=== PATIENT | female | born 1965 | race Caucasian/White ===

== ENCOUNTER 2016-09-25 20:32 | Emergency (ER) | payer OTHER ==
[2016-09-25] MEDS ORDERED: IBUPROFEN 800 MG TAB As Ordered ONE (23:04)
[2016-09-25] MEDS ORDERED: ACETAMINOPHEN 325 MG TAB As Ordered ONE (23:04)
[2016-09-26] MEDS ORDERED: LIDOCAINE 1% MDV 20ML VIAL As Ordered ONE (00:41)
[2016-09-26] MEDS ORDERED: AUGMENTIN 875 MG TAB As Ordered ONE (00:41)
[2016-09-26] MEDS ORDERED: cefTRIAXone SOD 1 GM VIAL (J0696) As Ordered ONE (00:41)
--- NOTE | 2016-09-26 01:15 | EDDOCDS ---
Nurse's Notes [facility] Name: Diana Frank Age: 51 yrs Sex: Female : 1965 Arrival Date: 09/25/2016 Time: 20:32 Bed I6 / 28 Private MD: Scott Wright P. Diagnosis: Acute serous otitis media, bilateral;Urinary tract infection, site not specified Presentation: 09/25 20:36 Presenting complaint: Patient states: Patient reports that she has chills. Patient jmb since 30 minutes ago. Patient reports that her whole body hurts. Patient reports "I have the flu". Symptoms started yesterday at noon. Patient denies call to PCP. Presenting complaint: Patient states: Patient reports taking tylenol and last dose was at 1400 p.m. Reports that she was going to take another dose at 2000 p.m. but she started vomiting. Adult Sepsis Screening: The patient does not have new or worsening altered mentation. Patient's respiratory rate is less than 22. Systolic blood pressure is greater than 100. Patient has a qSOFA score of 0- Negative Sepsis Screen. Suicide/Homicide risk assessment- the patient denies having any suicidal and/or homicidal ideations and does not present with any other emotional, behavioral or mental health complaints. Status: Patient is not a college service officer or dependent. Transition of care: patient was not received from another setting of care. 20:36 Acuity: KASSIE Level 4 [facility] 20:36 Method Of Arrival: Walkin/Carried/Asstd [facility] Triage Assessment: 20:39 General: Appears in no apparent distress. Pain: Location: head, neck, chest, abdomen, jmb pelvis, right arm, left arm, right leg, right foot, left leg, left foot, back of head, back of neck, back of left arm, back of right arm, posterior chest, buttocks, back of left leg, back of right leg, left heel, right heel and back Pain currently is 9 out of 10 on a pain scale. Pt Declines HIV testing. Neurological: Level of Consciousness is awake, alert, obeys commands, Oriented to person, place, time, Speech is normal, Facial symmetry appears normal, Facial symmetry: tongue is midline. Respiratory: Airway is patent Respiratory effort is even, unlabored, Respiratory pattern is regular, symmetrical. Derm: Skin is pink, warm & dry. Musculoskeletal: Range of motion intact in all extremities. 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 Micardis 40 mg Oral tab 1 tab once daily 2. hydrochlorothiazide 25 mg Oral tab 1 tab once daily 3. simvastatin 20 mg Oral tab 1 tab once daily - PMHx: Hypertension; hyperlipidemia; - PSHx: none; - Social history: Smoking status: Patient states was never smoker of tobacco. No barriers to communication noted, The patient speaks fluent Greek, Speaks appropriately for age. - Family history: Not pertinent. - : The pt / caregiver states he / she is not on anticoagulants. Home medication list is obtained from the patient. - Exposure Risk Screening:: None identified. Screenin:20 Screening information is obtained from the patient. Fall risk: No risks identified. slm Assistance ADL's: requires no assistance with activities of daily living. Abuse/DV Screen: The patient / caregiver reports he/she is: not in a situation that causes fear, pain or injury. Nutritional screening: No deficits noted. Advance Directives: Currently, there is no health care proxy. There is no active DNR order. There is no living will. There is no Power of Electrogalvanizing Machine Operator. Advance directive information has not previously been placed in an [facility] medical record. Further advance directive information is declined. home support is adequate. Assessment: 23:20 General: Appears in no apparent distress, comfortable, Behavior is appropriate for age, slm cooperative. General: pt sitting on stretcher sipping water no distress noted . Respiratory: Airway is patent Respiratory effort is even, unlabored, Respiratory pattern is regular. 09/26 01:11 Reassessment: Patient appears in no apparent distress at this time. Patient states slm feeling better. Vital Signs: 09/25 20:34 BP 152 / 86; Pulse 115; Resp 20; Temp 102.3(O); Pulse Ox 96% on R/A; Weight 88.45 kg; dem1 Height 5 ft. 3 in. (160.02 cm); Pain 8/10; 23:55 BP 133 / 70; Pulse 76; Resp 18; Temp 98.9; Pulse Ox 96% on R/A; Pain 4/10; slm 09/26 01:12 BP 121 / 72; Pulse 69; Resp 16; Temp 98.2(O); Pulse Ox 96% on R/A; Pain 2/10; slm 09/25 20:34 Body Mass Index 34.54 (88.45 kg, 160.02 cm) dem1 Vitals: 09/25 20:34 Log In Time: September 25, 2016 at 20:30. dem1 23:19 Strep Screen is obtained and tested: Negative, a GATSNEG culture is ordered in [facility] and sent. ED Course: 20:33 Patient visited by Mel Maravilla. dem1 20:33 Patient moved to Waiting dem1 20:34 Scott Wright is Private Physician. dem1 20:36 Patient moved to Pre RCE dem1 20:38 Triage Initiated jmb 22:47 Lazara Youssef PA-C is PHCP. ef1 22:47 Enrico Brown DO is Attending Physician. ef1 22:49 Patient visited by Lazara Youssef PA-C. ef1 22:49 Patient moved to I ef1 23:16 -Influenza A&B Rapid Antigen - Nose Sent. slm 23:21 Patient visited by Kimmie Cruz LPN. slm 23:51 Patient visited by Lazara Youssef PA-C. ef1 23:55 Kimmie Cruz LPN is Primary Nurse. slm 23:56 Patient visited by Kimmie Cruz LPN. slm 0207 00:17 Patient visited by Lazara Youssef PA-C. ef1 00:33 Urine Culture Sent. slm 00:35 Scott Wright is Referral Physician. ef1 00:35 [facility] Payment Agreement was scanned into [employer] and attached to record. hs2 00:38 Patient name changed from Iris\\S\\H\\S\\Bachmeyer\\S\\ to Iris\\S\\Helma\\S\\Bachmeyer. EDMS 01:13 No IV's were initiated during this patient's visit. No procedures done that require slm assistance. 01:14 The patient / caregiver is instructed regarding the plan of care and ED course. Patient slm has correct armband on for positive identification. Bed in low position. Call light in reach. Side rails up X 1. Administered Medications: 02/06 23:16 Drug: Acetaminophen 975 mg [acetaminophen 325 mg tablet (3 tabs)] Route: PO; [facility] 23:16 Drug: Ibuprofen 800 mg [ibuprofen 800 mg tablet (1 tabs)] Route: PO; [facility] 09/26 01:12 Follow up: Response: Temperature is decreased [facility] 00:49 Drug: cefTRIAXone 1 grams [ceftriaxone 1 gram solution for injection (1 grams)] Route: slm IM; Site: left gluteus; 01:11 Follow up: Response: No Adverse Reaction [facility] 00:49 Drug: Amoxicillin-Clavulanate 1 tabs [amoxicillin 875 mg-potassium clavulanate 125 mg slm tablet (1 tabs)] Route: PO; Point of Care Testing: Urine Dip: 00:34 pH: 5; ; Specific [place]: 1.015; Ketones: Large; Glucose: Negative; Protein: Negative; [facility] Leukocytes: Positive (++); Nitrite: Negative ; Blood: Large (+++); Bilirubin: Negative ; Urobilinogen: Normal Ranges: Order Results: Lab Order: -Influenza A&B Rapid Antigen - Nose; SPEC'M 09/25/16 23:12 Test: INFLUENZA A RAPID SCR by ICA; Value: INFLUENZA A RESULTS NEGATIVE; Status: F Test: INFLUENZA A RAPID SCR by ICA; Value: Comments:; Status: F Test: INFLUENZA B RAPID SCR by ICA; Value: INFLUENZA B RESULTS NEGATIVE; Status: F Test Note: ; The Influenza test is a direct rapid immunoassay for the qualitative detection of Influenza viral antigen. Cell culture (Viral Culture) testing should be considered to confirm NEGATIVE results and to assist in detecting other viruses that can provide similar clinical symptoms. Please contact the lab within 24 hours ([phone]) if confirmatory testing is desired. Outcome: 00:35 Discharge ordered by Provider. ef1 01:13 Discharge Assessment: Patient awake, alert and oriented x 3. No cognitive and/or slm functional deficits noted. Patient verbalized understanding of disposition instructions. patient administered narcotics - no. The following High Risk Discharge criteria are identified: None. Discharged to home ambulatory, with significant other. Condition: good. Discharge instructions given to patient, Instructed on discharge instructions, follow up and referral plans. medication usage, Demonstrated understanding of instructions, medications, Pt was receptive of discharge instructions/ teaching. Prescriptions given X 3. No special radiology studies were completed. Property :Personal belongings accompany Pt. 01:14 Patient left the ED. slm Signatures: Dispatcher [employer] EDLazara Carter, STEPHANIE BROWN ef1 Mel Maravilla1 James Sin,RN RN Kimmie Thomas,DIRECTOR MICROBIOLOGY DIRECTOR MICROBIOLOGY slYola Rossi, Reg Reg hs2 MTDD
--- NOTE | 2016-09-26 01:15 | EDDOCDS ---
Physician Documentation [facility] Name: Diana Frank Age: 51 yrs Sex: Female : 1965 Arrival Date: 09/25/2016 Time: 20:32 Bed I6 / 28 Private MD: Scott Wright P. Disposition: 09/26/16 00:35 Discharged to Home/Self Care. Impression: Acute serous otitis media, bilateral, Urinary tract infection, site not specified. - Condition is Stable. - Discharge Instructions: Urinary Tract Infection, [id number], Otitis Media, Child, [id number]. - Prescriptions for Augmentin 875- 125 mg Oral Tablet - take 1 tablet by ORAL route every 12 hours for 10 days; 20 tablet. Macrobid 100 mg Oral Capsule - take 100 milligram by ORAL route every 12 hours for 10 days; 20 capsule. Ibuprofen 800 mg Oral Tablet - take 1 tablet by ORAL route every 8 hours As needed take with food; 30 tablet. - Medication Reconciliation, Local Pharmacy Hours, Family Work Release, Work Release Form - 2 day form. - Follow up: Scott Wright; When: 1 - 2 days; Reason: Recheck today's complaints, Continuance of care. Follow up: Emergency Department; Reason: Worsening of conditions. - Problem is new. - Symptoms have improved. Historical: - Allergies: No known drug Allergies; - Home Meds: 1. Micardis 40 mg Oral tab 1 tab once daily 2. hydrochlorothiazide 25 mg Oral tab 1 tab once daily 3. simvastatin 20 mg Oral tab 1 tab once daily - PMHx: Hypertension; hyperlipidemia; - PSHx: none; - Social history: Smoking status: Patient states was never smoker of tobacco. No barriers to communication noted, The patient speaks fluent Bulgarian, Speaks appropriately for age. - Family history: Not pertinent. - : The pt / caregiver states he / she is not on anticoagulants. Home medication list is obtained from the patient. - Exposure Risk Screening:: None identified. 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 3 in. (160.02 cm); Pain 8/10; 23:55 BP 133 / 70; Pulse 76; Resp 18; Temp 98.9; Pulse Ox 96% on R/A; Pain 4/10; m 09/26 01:12 BP 121 / 72; Pulse 69; Resp 16; Temp 98.2(O); Pulse Ox 96% on R/A; Pain 2/10; slm 09/25 20:34 Body Mass Index 34.54 (88.45 kg, 160.02 cm) dem1 MDM: 09/25 22:48 Strep Screen, Nursing ordered. ef1 22:48 Obtain sample by nasopharyngeal swab ordered. ef1 22:48 Acetaminophen Tablet 975 mg PO once ordered. ef1 22:48 Ibuprofen 800 mg PO once ordered. ef1 22:48 Fluid Challenge ordered. ef1 22:49 -Influenza A&B Rapid Antigen - Nose Ordered. EDMS 23:21 GATS (NEGATIVE STREP SCREEN) Ordered. EDMS 23:52 Financial registration complete. hs2 23:52 -Influenza A&B Rapid Antigen - Nose Reviewed. ef1 09/26 00:18 Urine Dip ordered. ef1 00:19 Urine Culture Ordered. EDMS 00:32 cefTRIAXone 1 grams IM once ordered. ef1 00:32 Amoxicillin-Clavulanate 875 mg 1 tabs PO once ordered. ef1 00:35 [facility] Payment Agreement was scanned into [employer] and attached to record. hs2 Point of Care Testing: Urine Dip: 00:34 pH: 5; ; Specific [place]: 1.015; Ketones: Large; Glucose: Negative; Protein: Negative; [facility] Leukocytes: Positive (++); Nitrite: Negative ; Blood: Large (+++); Bilirubin: Negative ; Urobilinogen: Normal Ranges: Administered Medications: 09/25 23:16 Drug: Acetaminophen 975 mg [acetaminophen 325 mg tablet (3 tabs)] Route: PO; [facility] 23:16 Drug: Ibuprofen 800 mg [ibuprofen 800 mg tablet (1 tabs)] Route: PO; [facility] 09/26 01:12 Follow up: Response: Temperature is decreased [facility] 00:49 Drug: cefTRIAXone 1 grams [ceftriaxone 1 gram solution for injection (1 grams)] Route: slm IM; Site: left gluteus; 01:11 Follow up: Response: No Adverse Reaction [facility] 00:49 Drug: Amoxicillin-Clavulanate 1 tabs [amoxicillin 875 mg-potassium clavulanate 125 mg slm tablet (1 tabs)] Route: PO; Signatures: Dispatcher [employer] Lazara Clayton, LESLEEC PAMarina ef1 James Sin,RN RN jolieb Kimmie Cruz,INTELLECTUAL PROPERTY LEGAL ASSISTANT INTELLECTUAL PROPERTY LEGAL ASSISTANT slm Yola Avery, Reg Reg hs2 The chart was reviewed and I authenticate all verbal orders and agree with the evaluation and treatment provided.Attachments: 00:35 [facility] Payment Agreement hs2 MTDD
--- NOTE | 2016-09-28 02:15 | EDDOCDS ---
Physician Documentation [facility] Name: Diana Frank Age: 51 yrs Sex: Female : 1965 Arrival Date: 09/25/2016 Time: 20:32 Bed I6 / 28 Private MD: Scott Wright P. Disposition: 09/26/16 00:35 Discharged to Home/Self Care. Impression: Acute serous otitis media, bilateral, Urinary tract infection, site not specified. - Condition is Stable. - Discharge Instructions: Urinary Tract Infection, Szmh-ku-Whzf, Otitis Media, Child, [id number]. - Prescriptions for Augmentin 875- 125 mg Oral Tablet - take 1 tablet by ORAL route every 12 hours for 10 days; 20 tablet. Macrobid 100 mg Oral Capsule - take 100 milligram by ORAL route every 12 hours for 10 days; 20 capsule. Ibuprofen 800 mg Oral Tablet - take 1 tablet by ORAL route every 8 hours As needed take with food; 30 tablet. - Medication Reconciliation, Local Pharmacy Hours, Family Work Release, Work Release Form - 2 day form. - Follow up: Scott Wright; When: 1 - 2 days; Reason: Recheck today's complaints, Continuance of care. Follow up: Emergency Department; Reason: Worsening of conditions. - Problem is new. - Symptoms have improved. Historical: - Allergies: No known drug Allergies; - Home Meds: 1. Micardis 40 mg Oral tab 1 tab once daily 2. hydrochlorothiazide 25 mg Oral tab 1 tab once daily 3. simvastatin 20 mg Oral tab 1 tab once daily - PMHx: Hypertension; hyperlipidemia; - PSHx: none; - Social history: Smoking status: Patient states was never smoker of tobacco. No barriers to communication noted, The patient speaks fluent Lithuanian, Speaks appropriately for age. - Family history: Not pertinent. - : The pt / caregiver states he / she is not on anticoagulants. Home medication list is obtained from the patient. - Exposure Risk Screening:: None identified. 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 3 in. (160.02 cm); Pain 8/10; 23:55 BP 133 / 70; Pulse 76; Resp 18; Temp 98.9; Pulse Ox 96% on R/A; Pain 4/10; slm 09/26 01:12 BP 121 / 72; Pulse 69; Resp 16; Temp 98.2(O); Pulse Ox 96% on R/A; Pain 2/10; slm 09/25 20:34 Body Mass Index 34.54 (88.45 kg, 160.02 cm) dem1 MDM: 09/25 22:48 Strep Screen, Nursing ordered. ef1 22:48 Obtain sample by nasopharyngeal swab ordered. ef1 22:48 Acetaminophen Tablet 975 mg PO once ordered. ef1 22:48 Ibuprofen 800 mg PO once ordered. ef1 22:48 Fluid Challenge ordered. ef1 22:49 -Influenza A&B Rapid Antigen - Nose Ordered. EDMS 23:21 GATS (NEGATIVE STREP SCREEN) Ordered. EDMS 23:52 Financial registration complete. hs2 23:52 -Influenza A&B Rapid Antigen - Nose Reviewed. ef1 09/26 00:18 Urine Dip ordered. ef1 00:19 Urine Culture Ordered. EDMS 00:32 cefTRIAXone 1 grams IM once ordered. ef1 00:32 Amoxicillin-Clavulanate 875 mg 1 tabs PO once ordered. ef1 00:35 [facility] Payment Agreement was scanned into [employer] and attached to record. hs2 10:12 T-Sheet-- Draft Copy was scanned into [employer] and attached to record. Point of Care Testing: Urine Dip: 00:34 pH: 5; ; Specific [place]: 1.015; Ketones: Large; Glucose: Negative; Protein: Negative; [facility] Leukocytes: Positive (++); Nitrite: Negative ; Blood: Large (+++); Bilirubin: Negative ; Urobilinogen: Normal Ranges: Administered Medications: 09/25 23:16 Drug: Acetaminophen 975 mg [acetaminophen 325 mg tablet (3 tabs)] Route: PO; [facility] 23:16 Drug: Ibuprofen 800 mg [ibuprofen 800 mg tablet (1 tabs)] Route: PO; [facility] 09/26 01:12 Follow up: Response: Temperature is decreased m 00:49 Drug: cefTRIAXone 1 grams [ceftriaxone 1 gram solution for injection (1 grams)] Route: slm IM; Site: left gluteus; 01:11 Follow up: Response: No Adverse Reaction [facility] 00:49 Drug: Amoxicillin-Clavulanate 1 tabs [amoxicillin 875 mg-potassium clavulanate 125 mg slm tablet (1 tabs)] Route: PO; Signatures: Dispatcher [employer] EDShanna Edmondson, Reg Reg gb Lazara Youssef, STEPHANIE PAMarina ef1 James Sin RN RN Kimmie Thomas,INTERNAL MEDICINE DOCTOR INTERNAL MEDICINE DOCTOR slm Yola Avery, Reg Reg hs2 The chart was reviewed and I authenticate all verbal orders and agree with the evaluation and treatment provided.Attachments: 00:35 [place] [place] hs2 10:12 T-Sheet-- Draft Copy Chart Complete MTDD
--- NOTE | 2016-09-28 02:15 | EDDOCDS ---
Physician Documentation [facility] Name: Diana Frank Age: 51 yrs Sex: Female : 1965 Arrival Date: 09/25/2016 Time: 20:32 Bed I6 / 28 Private MD: Scott Wright P. Disposition: 09/26/16 00:35 Discharged to Home/Self Care. Impression: Acute serous otitis media, bilateral, Urinary tract infection, site not specified. - Condition is Stable. - Discharge Instructions: Urinary Tract Infection, Vjah-co-Dupy, Otitis Media, Child, Rqon-ip-[id number]. - Prescriptions for Augmentin 875- 125 mg Oral Tablet - take 1 tablet by ORAL route every 12 hours for 10 days; 20 tablet. Macrobid 100 mg Oral Capsule - take 100 milligram by ORAL route every 12 hours for 10 days; 20 capsule. Ibuprofen 800 mg Oral Tablet - take 1 tablet by ORAL route every 8 hours As needed take with food; 30 tablet. - Medication Reconciliation, Local Pharmacy Hours, Family Work Release, Work Release Form - 2 day form. - Follow up: Scott Wright; When: 1 - 2 days; Reason: Recheck today's complaints, Continuance of care. Follow up: Emergency Department; Reason: Worsening of conditions. - Problem is new. - Symptoms have improved. Historical: - Allergies: No known drug Allergies; - Home Meds: 1. Micardis 40 mg Oral tab 1 tab once daily 2. hydrochlorothiazide 25 mg Oral tab 1 tab once daily 3. simvastatin 20 mg Oral tab 1 tab once daily - PMHx: Hypertension; hyperlipidemia; - PSHx: none; - Social history: Smoking status: Patient states was never smoker of tobacco. No barriers to communication noted, The patient speaks fluent Croatian, Speaks appropriately for age. - Family history: Not pertinent. - : The pt / caregiver states he / she is not on anticoagulants. Home medication list is obtained from the patient. - Exposure Risk Screening:: None identified. 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 3 in. (160.02 cm); Pain 8/10; 23:55 BP 133 / 70; Pulse 76; Resp 18; Temp 98.9; Pulse Ox 96% on R/A; Pain 4/10; slm 09/26 01:12 BP 121 / 72; Pulse 69; Resp 16; Temp 98.2(O); Pulse Ox 96% on R/A; Pain 2/10; slm 09/25 20:34 Body Mass Index 34.54 (88.45 kg, 160.02 cm) dem1 MDM: 09/25 22:48 Strep Screen, Nursing ordered. ef1 22:48 Obtain sample by nasopharyngeal swab ordered. ef1 22:48 Acetaminophen Tablet 975 mg PO once ordered. ef1 22:48 Ibuprofen 800 mg PO once ordered. ef1 22:48 Fluid Challenge ordered. ef1 22:49 -Influenza A&B Rapid Antigen - Nose Ordered. EDMS 23:21 GATS (NEGATIVE STREP SCREEN) Ordered. EDMS 23:52 Financial registration complete. hs2 23:52 -Influenza A&B Rapid Antigen - Nose Reviewed. ef1 09/26 00:18 Urine Dip ordered. ef1 00:19 Urine Culture Ordered. EDMS 00:32 cefTRIAXone 1 grams IM once ordered. ef1 00:32 Amoxicillin-Clavulanate 875 mg 1 tabs PO once ordered. ef1 00:35 [facility] Payment Agreement was scanned into [employer] and attached to record. hs2 10:12 T-Sheet-- Draft Copy was scanned into [employer] and attached to record. Point of Care Testing: Urine Dip: 00:34 pH: 5; ; Specific [place]: 1.015; Ketones: Large; Glucose: Negative; Protein: Negative; [facility] Leukocytes: Positive (++); Nitrite: Negative ; Blood: Large (+++); Bilirubin: Negative ; Urobilinogen: Normal Ranges: Administered Medications: 09/25 23:16 Drug: Acetaminophen 975 mg [acetaminophen 325 mg tablet (3 tabs)] Route: PO; [facility] 23:16 Drug: Ibuprofen 800 mg [ibuprofen 800 mg tablet (1 tabs)] Route: PO; [facility] 09/26 01:12 Follow up: Response: Temperature is decreased m 00:49 Drug: cefTRIAXone 1 grams [ceftriaxone 1 gram solution for injection (1 grams)] Route: slm IM; Site: left gluteus; 01:11 Follow up: Response: No Adverse Reaction [facility] 00:49 Drug: Amoxicillin-Clavulanate 1 tabs [amoxicillin 875 mg-potassium clavulanate 125 mg slm tablet (1 tabs)] Route: PO; Signatures: Dispatcher [employer] EDShanna Edmondson, Reg Reg gb Lazara Youssef, STEPHANIE PAMarina ef1 James Sin RN RN Kimmie Thomas,SUPERVISOR PUMPING STATION SUPERVISOR PUMPING STATION slm Yola Avery, Reg Reg hs2 The chart was reviewed and I authenticate all verbal orders and agree with the evaluation and treatment provided.Attachments: 00:35 [facility] [place] Payment Agreement hs2 10:12 T-Sheet-- Draft Copy Chart Complete MTDD
--- NOTE | 2016-09-28 02:15 | EDDOCDS ---
Nurse's Notes [facility] Name: Diana Frank Age: 51 yrs Sex: Female : 1965 Arrival Date: 09/25/2016 Time: 20:32 Bed I6 / 28 Private MD: Scott Wright P. Diagnosis: Acute serous otitis media, bilateral;Urinary tract infection, site not specified Presentation: 09/25 20:36 Presenting complaint: Patient states: Patient reports that she has chills. Patient jmb since 30 minutes ago. Patient reports that her whole body hurts. Patient reports "I have the flu". Symptoms started yesterday at noon. Patient denies call to PCP. Presenting complaint: Patient states: Patient reports taking tylenol and last dose was at 1400 p.m. Reports that she was going to take another dose at 2000 p.m. but she started vomiting. Adult Sepsis Screening: The patient does not have new or worsening altered mentation. Patient's respiratory rate is less than 22. Systolic blood pressure is greater than 100. Patient has a qSOFA score of 0- Negative Sepsis Screen. Suicide/Homicide risk assessment- the patient denies having any suicidal and/or homicidal ideations and does not present with any other emotional, behavioral or mental health complaints. Status: Patient is not a environmental services worker or dependent. Transition of care: patient was not received from another setting of care. 20:36 Acuity: KASSIE Level 4 [facility] 20:36 Method Of Arrival: Walkin/Carried/Asstd [facility] Triage Assessment: 20:39 General: Appears in no apparent distress. Pain: Location: head, neck, chest, abdomen, jmb pelvis, right arm, left arm, right leg, right foot, left leg, left foot, back of head, back of neck, back of left arm, back of right arm, posterior chest, buttocks, back of left leg, back of right leg, left heel, right heel and back Pain currently is 9 out of 10 on a pain scale. Pt Declines HIV testing. Neurological: Level of Consciousness is awake, alert, obeys commands, Oriented to person, place, time, Speech is normal, Facial symmetry appears normal, Facial symmetry: tongue is midline. Respiratory: Airway is patent Respiratory effort is even, unlabored, Respiratory pattern is regular, symmetrical. Derm: Skin is pink, warm & dry. Musculoskeletal: Range of motion intact in all extremities. 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 Micardis 40 mg Oral tab 1 tab once daily 2. hydrochlorothiazide 25 mg Oral tab 1 tab once daily 3. simvastatin 20 mg Oral tab 1 tab once daily - PMHx: Hypertension; hyperlipidemia; - PSHx: none; - Social history: Smoking status: Patient states was never smoker of tobacco. No barriers to communication noted, The patient speaks fluent Amharic, Speaks appropriately for age. - Family history: Not pertinent. - : The pt / caregiver states he / she is not on anticoagulants. Home medication list is obtained from the patient. - Exposure Risk Screening:: None identified. Screenin:20 Screening information is obtained from the patient. Fall risk: No risks identified. slm Assistance ADL's: requires no assistance with activities of daily living. Abuse/DV Screen: The patient / caregiver reports he/she is: not in a situation that causes fear, pain or injury. Nutritional screening: No deficits noted. Advance Directives: Currently, there is no health care proxy. There is no active DNR order. There is no living will. There is no Power of Hospital Chief Executive Officer. Advance directive information has not previously been placed in an [facility] medical record. Further advance directive information is declined. home support is adequate. Assessment: 23:20 General: Appears in no apparent distress, comfortable, Behavior is appropriate for age, slm cooperative. General: pt sitting on stretcher sipping water no distress noted . Respiratory: Airway is patent Respiratory effort is even, unlabored, Respiratory pattern is regular. 09/26 01:11 Reassessment: Patient appears in no apparent distress at this time. Patient states slm feeling better. Vital Signs: 09/25 20:34 BP 152 / 86; Pulse 115; Resp 20; Temp 102.3(O); Pulse Ox 96% on R/A; Weight 88.45 kg; dem1 Height 5 ft. 3 in. (160.02 cm); Pain 8/10; 23:55 BP 133 / 70; Pulse 76; Resp 18; Temp 98.9; Pulse Ox 96% on R/A; Pain 4/10; slm 09/26 01:12 BP 121 / 72; Pulse 69; Resp 16; Temp 98.2(O); Pulse Ox 96% on R/A; Pain 2/10; slm 09/25 20:34 Body Mass Index 34.54 (88.45 kg, 160.02 cm) dem1 Vitals: 09/25 20:34 Log In Time: September 25, 2016 at 20:30. dem1 23:19 Strep Screen is obtained and tested: Negative, a GATSNEG culture is ordered in [facility] and sent. ED Course: 20:33 Patient visited by Mel Maravilla. dem1 20:33 Patient moved to Waiting dem1 20:34 Scott Wright is Private Physician. dem1 20:36 Patient moved to Pre RCE dem1 20:38 Triage Initiated jmb 22:47 Lazara Youssef PA-C is PHCP. ef1 22:47 Enrico Brown DO is Attending Physician. ef1 22:49 Patient visited by Lazara Youssef PA-C. ef1 22:49 Patient moved to I ef1 23:16 -Influenza A&B Rapid Antigen - Nose Sent. slm 23:21 Patient visited by Kimmie Cruz LPN. slm 23:51 Patient visited by Lazara Youssef PA-C. ef1 23:55 Kimmie Cruz LPN is Primary Nurse. slm 23:56 Patient visited by Kimmie Cruz LPN. slm 0207 00:17 Patient visited by Lazara Youssef PA-C. ef1 00:33 Urine Culture Sent. slm 00:35 Scott Wright is Referral Physician. ef1 00:35 [facility] Payment Agreement was scanned into [employer] and attached to record. hs2 00:38 Patient name changed from Iris\\S\\H\\S\\Bachmeyer\\S\\ to Iris\\S\\Helma\\S\\Bachmeyer. EDMS 01:13 No IV's were initiated during this patient's visit. No procedures done that require slm assistance. 01:14 The patient / caregiver is instructed regarding the plan of care and ED course. Patient slm has correct armband on for positive identification. Bed in low position. Call light in reach. Side rails up X 1. 10:12 T-Sheet-- Draft Copy was scanned into [employer] and attached to record. gb Administered Medications: 09/25 23:16 Drug: Acetaminophen 975 mg [acetaminophen 325 mg tablet (3 tabs)] Route: PO; [facility] 23:16 Drug: Ibuprofen 800 mg [ibuprofen 800 mg tablet (1 tabs)] Route: PO; [facility] 09/26 01:12 Follow up: Response: Temperature is decreased [facility] 00:49 Drug: cefTRIAXone 1 grams [ceftriaxone 1 gram solution for injection (1 grams)] Route: [facility] IM; Site: left gluteus; 01:11 Follow up: Response: No Adverse Reaction [facility] 00:49 Drug: Amoxicillin-Clavulanate 1 tabs [amoxicillin 875 mg-potassium clavulanate 125 mg slm tablet (1 tabs)] Route: PO; Point of Care Testing: Urine Dip: 00:34 pH: 5; ; Specific [place]: 1.015; Ketones: Large; Glucose: Negative; Protein: Negative; [facility] Leukocytes: Positive (++); Nitrite: Negative ; Blood: Large (+++); Bilirubin: Negative ; Urobilinogen: Normal Ranges: Order Results: Lab Order: -Influenza A&B Rapid Antigen - Nose; SPEC'M 09/25/16 23:12 Test: INFLUENZA A RAPID SCR by ICA; Value: INFLUENZA A RESULTS NEGATIVE; Status: F Test: INFLUENZA A RAPID SCR by ICA; Value: Comments:; Status: F Test: INFLUENZA B RAPID SCR by ICA; Value: INFLUENZA B RESULTS NEGATIVE; Status: F Test Note: ; The Influenza test is a direct rapid immunoassay for the qualitative detection of Influenza viral antigen. Cell culture (Viral Culture) testing should be considered to confirm NEGATIVE results and to assist in detecting other viruses that can provide similar clinical symptoms. Please contact the lab within 24 hours ([phone]) if confirmatory testing is desired. Lab Order: GATS (NEGATIVE STREP SCREEN); SPEC'M 09/25/16 23:10 Test: GATS CULTURE (NEG STREP SCR); Value: GATS RESULT NEGATIVE FOR STREP PYOGENES (GROUP A); Status: F Test: GATS CULTURE (NEG STREP SCR); Value: <EXTERNAL COMMENT eCWMed> FULL REPORT IN LAB NOTES (eCW and Medent).; Status: F Outcome: 00:35 Discharge ordered by Provider. ef1 01:13 Discharge Assessment: Patient awake, alert and oriented x 3. No cognitive and/or slm functional deficits noted. Patient verbalized understanding of disposition instructions. patient administered narcotics - no. The following High Risk Discharge criteria are identified: None. Discharged to home ambulatory, with significant other. Condition: good. Discharge instructions given to patient, Instructed on discharge instructions, follow up and referral plans. medication usage, Demonstrated understanding of instructions, medications, Pt was receptive of discharge instructions/ teaching. Prescriptions given X 3. No special radiology studies were completed. Property :Personal belongings accompany Pt. 01:14 Patient left the ED. slm Signatures: Dispatcher [employer] EDMS Shanna Plaza, Reg Reg gb Lazara Youssef, PAValeriyC PAMarina ef1 Mel Maravilla1 James Sin,RN RN Kimmie Thomas,LUISA HURTADON slm Yola Avery, Reg Reg hs2 Chart Complete MTDDariana
== END 2016-09-26 01:14 | disposition home or self-care (01) ==
LOC: M ED 20:32
DX: H66.92 Otitis media, unspecified, left ear (principal); N39.0 Urinary tract infection, site not specified; R50.9 Fever, unspecified; R51 Headache; I10 Essential (primary) hypertension; E78.5 Hyperlipidemia, unspecified; Z79.899 Other long term (current) drug therapy
CPT/HCPCS: 87088; 87186; 87804; 87880; 96372; 99283; J0696

== ENCOUNTER 2016-09-27 12:36 | Emergency (ER) | payer OTHER ==
[2016-09-27] MEDS ORDERED: ONDANSETRON 4MG/2ML VIAL (J2405) As Ordered ONE (16:19)
[2016-09-27] MEDS ORDERED: KETOROLAC 30 MG/ML VIAL (J1885) As Ordered ONE (16:20)
[2016-09-27 16:49] LABS: ALBUMIN 3.3 GM/DL (3.2-5.2); ALBUMIN/GLOBULIN RATIO 0.85 (1.00-1.93); ALKALINE PHOSPHATASE 94 U/L (45-117); ALT/SGPT 28 U/L (12-78); ANION GAP 11 MEQ/L (8-16); AST/SGOT 34 U/L (15-37); BILIRUBIN,DIRECT 0.1 MG/DL (0.0-0.2); BILIRUBIN,TOTAL 0.7 MG/DL (0.2-1.0); BLOOD UREA NITROGEN 10 MG/DL (7-18); CALCIUM LEVEL 8.3 MG/DL (8.5-10.1); CARBON DIOXIDE LEVEL 28 MEQ/L (21-32); CHLORIDE LEVEL 91 MEQ/L (98-107); CREATININE FOR GFR 0.74 MG/DL (0.55-1.02); GLOMERULAR FILTRATION RATE > 60.0 (>51); GLUCOSE, FASTING 97 MG/DL (70-105); POTASSIUM SERUM 3.5 MEQ/L (3.5-5.1); SODIUM LEVEL 130 MEQ/L (136-145); TOTAL PROTEIN 7.2 GM/DL (6.4-8.2)
[2016-09-27 17:04] LABS: BASO % 0.1 % (0.0-1.0); EOS # 0.1 K/mm3 (0.0-0.50); EOS % 0.4 % (0.0-3.0); LARGE UNSTAINED CELL # 0.3 K/mm3 (0.0-0.4); LARGE UNSTAINED CELL % 1.8 % (0.0-4.0); LYMPH # 0.7 K/mm3 (1.5-4.5); MEAN CORPUSCULAR HEMOGLOBIN 31.4 pg (27.0-33.0); MEAN CORPUSCULAR HGB CONC 34.9 g/dl (32.0-36.5); MEAN CORPUSCULAR VOLUME 89.9 fl (80.0-96.0); MONO # 0.7 K/mm3 (0.0-0.8); MONO % 4.9 % (0.0-5.0); NEUTROPHILS # 12.1 K/mm3 (1.8-7.7); NEUTROPHILS % 87.7 % (36.0-66.0); PLATELET COUNT, AUTOMATED 165 k/mm3 (150-450); RED CELL DISTRIBUTION WIDTH 11.3 % (11.5-14.5); WHITE BLOOD COUNT 13.8 K/mm3 (4.0-10.0)
--- NOTE | 2016-09-27 17:06 | REP ---
Urinary tract sonography: History: Right flank pain Findings: Scanning at the level of the urinary bladder shows no abnormality. The urinary bladder is largely empty. Renal cortical echogenicity pattern is normal and contours are smooth on both sides. The right kidney measures 11.1 x 4.3 x 5.4 cm. Left renal dimensions are 12.0 x 5.7 x 5.6 cm. There is a 1.4 cm cortical simple cyst in the upper pole of the left kidney. No other cyst or mass is seen on either side. No hydronephrosis is seen. Impression: Small simple cyst left kidney. Otherwise negative urinary tract sonogram. No evidence of hydronephrosis. Signed by Pacsual Reinoso MD 09/27/2016 05:12 P
[2016-09-27] MEDS ORDERED: CIPROFLOXACIN 500 MG TAB As Ordered ONE (17:24)
--- NOTE | 2016-09-27 17:54 | EDDOCDS ---
Physician Documentation [facility] Name: Diana Frank Age: 51 yrs Sex: Female : 1965 Arrival Date: 09/27/2016 Time: 12:36 Bed I7 / 29 Private MD: Scott Wright P. Disposition: 09/27/16 17:44 Discharged to Home/Self Care. Impression: Urinary tract infection, site not specified, Malaise and fatigue. - Condition is Stable. - Discharge Instructions: Urinary Tract Infection, Fatigue. - Prescriptions for Cipro 500 mg Oral Tablet - take 1 tablet by ORAL route every 12 hours; 14 tablet. ZOFRAN ODT 4 mg - dissolve 1 tablet by ORAL route 4 times per day As needed do not chew, do not swallow whole; 10 tablet. - Work Release Form - 3 day, Medication Reconciliation, Local Pharmacy Hours form. - Follow up: Scott Wright; When: Call to arrange an appointment; Reason: Recheck today's complaints, Continuance of care. - Problem is new. - Symptoms are unchanged. Historical: - Allergies: No known drug Allergies; - Home Meds: 1. hydrochlorothiazide 25 mg Oral tab 1 tab once daily (Last dose: 09/26/2016) 2. Micardis 40 mg Oral tab 1 tab once daily (Last dose: 09/26/2016) 3. simvastatin 20 mg Oral tab 1 tab once daily (Last dose: 09/23/2016) 4. ibuprofen 800 mg Oral tab 1 tab (Last dose: 09/27/2016 09:15) 5. amoxicillin-pot clavulanate 875-125 mg Oral tab 1 tab every 12 hours (Last dose: 09/27/2016 10:15) 6. nitrofurantoin macrocrystal 100 mg Oral cap 1 cap twice a day (Last dose: 09/27/2016 10:15) 7. Tylenol 325 mg Oral tab 1 tab every 4 hours (Last dose: 09/27/2016 10:15) - PMHx: hyperlipidemia; Hypertension; - PSHx: eye surgery at age 4; - Social history: Smoking status: Patient states former smoker of tobacco. No barriers to communication noted, The patient speaks fluent Pashto, Speaks appropriately for age. - Family history: Not pertinent. - : The pt / caregiver states he / she is not on anticoagulants. Home medication list is obtained from the patient. - Exposure Risk Screening:: None identified. LEGAL SPECIALIST: 09/27 14:50 LMP N/A - Post-menopause hs1 Vital Signs: 12:38 BP 123 / 77; Pulse 77; Resp 18 S; Temp 96.4(O); Pulse Ox 98% on R/A; Weight 88.45 kg / gr2 195 lbs (R); Height 5 ft. 3 in. (160.02 cm) (R); Pain 4/10; 17:29 BP 141 / 77; Pulse 82; Resp 20; Temp 98.2(T); Pulse Ox 98% on R/A; Pain 0/10; jc4 12:38 Body Mass Index 34.54 (88.45 kg, 160.02 cm) gr2 MDM: 15:57 IV Saline Lock ordered. mo1 15:57 NS 0.9% 1000 ml IV at bolus once ordered. mo1 15:57 Ondansetron 4 mg IVP once ordered. mo1 15:57 ketorolac 30 mg IVP once ordered. mo1 15:58 CBC with Diff Ordered. EDMS 15:58 BMP Ordered. EDMS 15:58 Liver Profile Ordered. EDMS 15:58 Lipase Ordered. EDMS 15:58 UA Ordered. EDMS 15:58 Urine Culture Ordered. EDMS 15:59 US Renal Ordered. EDMS 16:42 Financial registration complete. gjb 16:45 [facility] Payment Agreement was scanned into [employer] and attached to record. gjb 16:47 UA Reviewed. mo1 17:04 Lipase Reviewed. mo1 17:04 Liver Profile Reviewed. mo1 17:05 BMP Reviewed. mo1 17:10 CBC with Diff Reviewed. mo1 17:17 Ciprofloxacin 500 mg PO once ordered. mo1 17:26 US Renal Reviewed. mo1 Administered Medications: 16:39 Drug: Ondansetron 4 mg [ondansetron HCl 2 mg/mL intravenous solution (2 mL)] Route: dsf IVP; Site: right hand; 16:39 Drug: ketorolac 30 mg [ketorolac 30 mg/mL (1 mL) injection solution (1 mL)] Route: IVP; dsf Site: right hand; 16:40 Drug: NS 0.9% 1000 ml [sodium chloride 0.9 % injection solution] Route: IV; Rate: dsf bolus; Site: right hand; 17:42 Follow up: IV Status: Completed infusion; IV Intake: 1000ml jc4 17:26 Drug: Ciprofloxacin 500 mg [ciprofloxacin 500 mg tablet (1 tabs)] Route: PO; jc4 Signatures: Dispatcher [employer] Joyce Street RN RN hs1 Joyce Crowley RN RN jc4 Randy Lama PA PA mo1 Beck, Gabriela gjb Fuller, Desiree RN dsf The chart was reviewed and I authenticate all verbal orders and agree with the evaluation and treatment provided.Attachments: 16:45 [facility] Payment Agreement balbina MTDD
--- NOTE | 2016-09-27 17:54 | EDDOCDS ---
Nurse's Notes [facility] Name: Diana Frank Age: 51 yrs Sex: Female : 1965 Arrival Date: 09/27/2016 Time: 12:36 Bed I7 / 29 Private MD: Scott Wright P. Diagnosis: Urinary tract infection, site not specified;Malaise and fatigue Presentation: 09/27 12:42 Presenting complaint: Patient states: seen here Sunday night and states not getting hs1 better. Patient states diagnosed with UTI and ear infection. No apt for primary care until tomorrow afternoon. Patient states not getting better. Adult Sepsis Screening: The patient does not have new or worsening altered mentation. Patient's respiratory rate is less than 22. Systolic blood pressure is greater than 100. Patient has a qSOFA score of 0- Negative Sepsis Screen. Suicide/Homicide risk assessment- the patient denies having any suicidal and/or homicidal ideations and does not present with any other emotional, behavioral or mental health complaints. Status: Patient is not a pharmaceutical service representative or dependent. Transition of care: patient was not received from another setting of care. 12:42 Acuity: KASSIE Level 3 hs1 12:42 Method Of Arrival: Walkin/Carried/Asstd hs1 Triage Assessment: 12:48 General: Appears in no apparent distress, Behavior is appropriate for age, cooperative. hs1 Pain: Location: i just feel miserable. HIV screening NA for this visit Offered previously. Respiratory: No deficits noted. GI: Reports diarrhea, nausea. Derm: Skin is pink, warm & dry. normal. 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 hydrochlorothiazide 25 mg Oral tab 1 tab once daily (Last dose: 09/26/2016) 2. Micardis 40 mg Oral tab 1 tab once daily (Last dose: 09/26/2016) 3. simvastatin 20 mg Oral tab 1 tab once daily (Last dose: 09/23/2016) 4. ibuprofen 800 mg Oral tab 1 tab (Last dose: 09/27/2016 09:15) 5. amoxicillin-pot clavulanate 875-125 mg Oral tab 1 tab every 12 hours (Last dose: 09/27/2016 10:15) 6. nitrofurantoin macrocrystal 100 mg Oral cap 1 cap twice a day (Last dose: 09/27/2016 10:15) 7. Tylenol 325 mg Oral tab 1 tab every 4 hours (Last dose: 09/27/2016 10:15) - PMHx: hyperlipidemia; Hypertension; - PSHx: eye surgery at age 4; - Social history: Smoking status: Patient states former smoker of tobacco. No barriers to communication noted, The patient speaks fluent Latvian, Speaks appropriately for age. - Family history: Not pertinent. - : The pt / caregiver states he / she is not on anticoagulants. Home medication list is obtained from the patient. - Exposure Risk Screening:: None identified. Screenin:27 Screening information is obtained from the patient. Fall risk: No risks identified. jc4 Assistance ADL's: requires no assistance with activities of daily living. Abuse/DV Screen: The patient / caregiver reports he/she is: not in a situation that causes fear, pain or injury. Nutritional screening: No deficits noted. home support is adequate. 17:29 Advance Directives: Currently, there is no health care proxy. There is no active DNR jc4 order. There is no living will. There is no Power of Audit Officer. Assessment: 16:19 General: Appears in no apparent distress, comfortable, Behavior is appropriate for age, ck1 cooperative. Pain: Location: generalized Quality of pain is described as aching. Neurological: Level of Consciousness is awake, alert, obeys commands, Oriented to person, place, time. Respiratory: Respiratory effort is unlabored, Respiratory pattern is regular, symmetrical. GI: No deficits noted. Derm: Skin is intact, is healthy with good turgor, Skin is pink, warm & dry. 17:30 General: Appears in no apparent distress, comfortable, Behavior is cooperative, jc4 pleasant. Pain: Denies pain. Neurological: Level of Consciousness is awake, alert, Oriented to person, place, time. Respiratory: Airway is patent Respiratory effort is even, unlabored, Respiratory pattern is regular, symmetrical. Derm: Skin is pink, warm & dry. 17:52 General: Appears in no apparent distress, comfortable, Behavior is cooperative. jc4 Neurological: Level of Consciousness is awake, alert, Oriented to person, place, time. Respiratory: Airway is patent Respiratory effort is even, unlabored, Respiratory pattern is regular, symmetrical. Derm: Skin is pink, warm & dry. Vital Signs: 12:38 BP 123 / 77; Pulse 77; Resp 18 S; Temp 96.4(O); Pulse Ox 98% on R/A; Weight 88.45 kg gr2 (R); Height 5 ft. 3 in. (160.02 cm) (R); Pain 4/10; 17:29 BP 141 / 77; Pulse 82; Resp 20; Temp 98.2(T); Pulse Ox 98% on R/A; Pain 0/10; jc4 12:38 Body Mass Index 34.54 (88.45 kg, 160.02 cm) gr2 Vitals: 12:38 Log In Time: September 27, 2016 at 12:38. gr2 ED Course: 12:37 Patient visited by Navya Flores. gr2 12:37 Patient moved to Waiting gr2 12:38 Scott Wright is Private Physician. gr2 12:39 Patient visited by Navya Flores. gr2 12:39 Patient moved to Pre RCE gr2 12:44 Triage Initiated hs1 14:41 Patient moved to Triage 1 ct3 15:44 Randy Lama PA is PHCP. mo1 15:44 Mario Ramos MD is Attending Physician. mo1 15:49 Patient visited by Randy Lama PA. mo1 16:01 Joyce Crowley, RN is Primary Nurse. mlb1 16:01 Anu Roa,RN is Primary Nurse. mlb1 16:01 Patient moved to mlb1 16:18 Patient visited by Jeanine Nolan,DONALD. ck1 16:18 UA Sent. ck1 16:18 Urine Culture Sent. ck1 16:18 Lipase Sent. ck1 16:18 Liver Profile Sent. ck1 16:18 BMP Sent. ck1 16:19 The patient / caregiver is instructed regarding the plan of care and ED course. ck1 16:19 CBC with Diff Sent. ck1 16:19 Inserted saline lock: 22 gauge in right hand and blood collected. The patient tolerated ck1 the procedure well. 16:22 Patient moved to Ultrasound ck1 16:31 Patient moved to hgl 16:45 [facility] [place] Agreement was scanned into [employer] and attached to record. gjb 17:23 US Renal Returned. EDMS 17:30 Patient visited by Joyce Crowley RN. jc4 17:44 Scott Wright is Referral Physician. mo1 17:52 Discontinued lock intact, bleeding controlled, pressure dressing applied, No jc4 redness/swelling at site. No procedures done that require assistance. Administered Medications: 16:39 Drug: Ondansetron 4 mg [ondansetron HCl 2 mg/mL intravenous solution (2 mL)] Route: dsf IVP; Site: right hand; 16:39 Drug: ketorolac 30 mg [ketorolac 30 mg/mL (1 mL) injection solution (1 mL)] Route: IVP; dsf Site: right hand; 16:40 Drug: NS 0.9% 1000 ml [sodium chloride 0.9 % injection solution] Route: IV; Rate: dsf bolus; Site: right hand; 17:42 Follow up: IV Status: Completed infusion; IV Intake: 1000ml jc4 17:26 Drug: Ciprofloxacin 500 mg [ciprofloxacin 500 mg tablet (1 tabs)] Route: PO; jc4 Intake: 17:42 IV: 1000.00ml; Total: 1000.00ml. jc4 Order Results: Lab Order: CBC with Diff; SPEC'M 17 16:17 Test: WHITE BLOOD COUNT; Value: 13.8; Range: 4.0-10.0; Abnormal: Above high normal; Units: K/mm3; Status: F Test: RED BLOOD COUNT; Value: 4.73; Range: 4.00-5.40; Units: M/mm3; Status: F Test: HEMOGLOBIN; Value: 14.9; Range: 12.0-16.0; Units: g/dl; Status: F Test: HEMATOCRIT; Value: 42.5; Range: 36.0-47.0; Units: %; Status: F Test: MEAN CORPUSCULAR VOLUME; Value: 89.9; Range: 80.0-96.0; Units: fl; Status: F Test: MEAN CORPUSCULAR HEMOGLOBIN; Value: 31.4; Range: 27.0-33.0; Units: pg; Status: F Test: MEAN CORPUSCULAR HGB CONC; Value: 34.9; Range: 32.0-36.5; Units: g/dl; Status: F Test: RED CELL DISTRIBUTION WIDTH; Value: 11.3; Range: 11.5-14.5; Abnormal: Below low normal; Units: %; Status: F Test: PLATELET COUNT, AUTOMATED; Value: 165; Range: 150-450; Units: k/mm3; Status: F Test: NEUTROPHILS %; Value: 87.7; Range: 36.0-66.0; Abnormal: Above high normal; Units: %; Status: F Test: LYMPH %; Value: 5.0; Range: 24.0-44.0; Abnormal: Below low normal; Units: %; Status: F Test: MONO %; Value: 4.9; Range: 0.0-5.0; Units: %; Status: F Test: EOS %; Value: 0.4; Range: 0.0-3.0; Units: %; Status: F Test: BASO %; Value: 0.1; Range: 0.0-1.0; Units: %; Status: F Test: LARGE UNSTAINED CELL %; Value: 1.8; Range: 0.0-4.0; Units: %; Status: F Test: NEUTROPHILS #; Value: 12.1; Range: 1.8-7.7; Abnormal: Above high normal; Units: K/mm3; Status: F Test: LYMPH #; Value: 0.7; Range: 1.5-4.5; Abnormal: Below low normal; Units: K/mm3; Status: F Test: MONO #; Value: 0.7; Range: 0.0-0.8; Units: K/mm3; Status: F Test: EOS #; Value: 0.1; Range: 0.0-0.50; Units: K/mm3; Status: F Test: BASO #; Value: 0.0; Range: 0.0-0.2; Units: K/mm3; Status: F Test: LARGE UNSTAINED CELL #; Value: 0.3; Range: 0.0-0.4; Units: K/mm3; Status: F Lab Order: [facility]; SPEC'M 09/27/16 16:17 Test: GLUCOSE, FASTING; Value: 97; Range: 70-105; Units: MG/DL; Status: F Test: BLOOD UREA NITROGEN; Value: 10; Range: 7-18; Units: MG/DL; Status: F Test: CREATININE FOR GFR; Value: 0.74; Range: 0.55-1.02; Units: MG/DL; Status: F Test: GLOMERULAR FILTRATION RATE; Value: > 60.0; Range: >51; Status: F Test: SODIUM LEVEL; Value: 130; Range: 136-145; Abnormal: Below low normal; Units: MEQ/L; Status: F Test: POTASSIUM SERUM; Value: 3.5; Range: 3.5-5.1; Units: MEQ/L; Status: F Test: CHLORIDE LEVEL; Value: 91; Range: 98-107; Abnormal: Below low normal; Units: MEQ/L; Status: F Test: CARBON DIOXIDE LEVEL; Value: 28; Range: 21-32; Units: MEQ/L; Status: F Test: ANION GAP; Value: 11; Range: 8-16; Units: MEQ/L; Status: F Test: CALCIUM LEVEL; Value: 8.3; Range: 8.5-10.1; Abnormal: Below low normal; Units: MG/DL; Status: F Test Note: ; Units are mL/min/1.73 m2 Chronic Kidney Disease Staging per NKF: Stage I & II GFR >=60 Normal to Mildly Decreased Stage III GFR 30-59 Moderately Decreased Stage IV GFR 15-29 Severely Decreased Stage V GFR <15 Very Little GFR Left ESRD GFR <15 on SPOOL WINDER Lab Order: Liver Profile; [facility] 09/27/16 16:17 Test: AST/SGOT; Value: 34; Range: 15-37; Units: U/L; Status: F Test: ALT/SGPT; Value: 28; Range: 12-78; Units: U/L; Status: F Test: ALKALINE PHOSPHATASE; Value: 94; Range: 45-117; Units: U/L; Status: F Test: BILIRUBIN,TOTAL; Value: 0.7; Range: 0.2-1.0; Units: MG/DL; Status: F Test: BILIRUBIN,DIRECT; Value: 0.1; Range: 0.0-0.2; Units: MG/DL; Status: F Test: TOTAL PROTEIN; Value: 7.2; Range: 6.4-8.2; Units: GM/DL; Status: F Test: ALBUMIN; Value: 3.3; Range: 3.2-5.2; Units: GM/DL; Status: F Test: ALBUMIN/GLOBULIN RATIO; Value: 0.85; Range: 1.00-1.93; Abnormal: Below low normal; Status: F Lab Order: Lipase; SPEC' 09/27/16 16: Test: LIPASE; Value: 64; Range: 73-393; Abnormal: Below low normal; Units: U/L; Status: F Lab Order: UA; SPEC' 09/27/16 16: Test: APPEARANCE, URINE; Value: HAZY; Range: CLEAR; Status: F Test: COLOR, URINE; Value: YELLOW; Range: YELLOW; Status: F Test: PH,URINE; Value: 6.0; Range: 5.0-9.0; Units: UNITS; Status: F Test: SPECIFIC GRAVITY URINE AUTO; Value: 1.009; Range: 1.002-1.035; Status: F Test: PROTEIN, URINE AUTO; Value: NEGATIVE; Range: NEGATIVE; Units: mg/dL; Status: F Test: GLUCOSE, URINE (UA) AUTO; Value: NEGATIVE; Range: NEGATIVE; Units: mg/dL; Status: F Test: KETONE, URINE AUTO; Value: 1+; Range: NEGATIVE; Abnormal: Above high normal; Units: mg/dL; Status: F Test: UROBILINOGEN, URINE AUTO; Value: 0.2; Range: 0.0-2.0; Units: mg/dL; Status: F Test: BILIRUBIN, URINE AUTO; Value: NEGATIVE; Range: NEGATIVE; Status: F Test: NITRITE, URINE AUTO; Value: NEGATIVE; Range: NEGATIVE; Status: F Test: LEUKOCYTE ESTERASE, URINE AUTO; Value: 1+; Range: NEGATIVE; Abnormal: Above high normal; Status: F Test: BLOOD, URINE BLOOD; Value: 2+; Range: NEGATIVE; Abnormal: Above high normal; Status: F Test: WBC, URINE AUTO; Value: 17; Range: 0-3; Abnormal: Above high normal; Units: /HPF; Status: F Test: RBC, URINE AUTO; Value: 10; Range: 0-3; Abnormal: Above high normal; Units: /HPF; Status: F Test: BACTERIA, URINE AUTO; Value: 1+; Range: NEGATIVE; Abnormal: Above high normal; Status: F Test: SQUAMOUS EPITHELIAL CELL UR AU; Value: 1; Range: 0-6; Units: /HPF; Status: F Test: HYALINE CAST, URINE AUTO; Value: 0; Range: 0-1; Units: /LPF; Status: F Test: AMORPHOUS SEDIMENT; Value: SMALL; Range: NEGATIVE; Abnormal: Above high normal; Status: F Radiology Order: US Renal Test: US Renal REASON FOR EXAMINATION: rt flank pain, recent uti ; Urinary tract sonography:; ; History: Right flank pain; ; Findings: Scanning at the level of the urinary bladder shows no abnormality.; The urinary bladder is largely empty.; ; Renal cortical echogenicity pattern is normal and contours are smooth on both; sides. The right kidney measures 11.1 x 4.3 x 5.4 cm. Left renal dimensions are; 12.0 x 5.7 x 5.6 cm. There is a 1.4 cm cortical simple cyst in the upper pole of; the left kidney. No other cyst or mass is seen on either side. No; hydronephrosis is seen.; ; Impression:; ; Small simple cyst left kidney. Otherwise negative urinary tract sonogram. No; evidence of hydronephrosis.; ; ; Signed by; Pascual Reinoso MD 09/27/2016 05:12 P; Outcome: 17:44 Discharge ordered by Provider. mo1 17:52 Discharge Assessment: Patient awake, alert and oriented x 3. No cognitive and/or jc4 functional deficits noted. Patient verbalized understanding of disposition instructions. patient administered narcotics - no. The following High Risk Discharge criteria are identified: None. Discharged to home ambulatory. Condition: stable. Discharge instructions given to patient, Instructed on discharge instructions, follow up and referral plans. medication usage, Demonstrated understanding of instructions, medications, Pt was receptive of discharge instructions/ teaching. Work note provided to patient. No special radiology studies were completed. Property :Personal belongings accompany Pt. 17:53 Patient left the ED. jc4 Signatures: Dispatcher [employer] EDSC Randy Estrada RN RN mlb1 Jeanine NolanRN RN ck1 Joyce Haynes RN RN hs1 Joyce Crowley RN RN jc4 Romelia Squires, STRUCTURAL WELDER STRUCTURAL WELDER ct3 Myla JohnsonRN RN dsf Donn Ayala hgl Navya Flores gr2 Randy Lama PA PA mo1 Lou Cat MTDD
--- NOTE | 2016-09-29 18:54 | EDDOCDS ---
Physician Documentation [facility] Name: Diana Frank Age: 51 yrs Sex: Female : 1965 Arrival Date: 09/27/2016 Time: 12:36 Bed I7 / 29 Private MD: Scott Wright P. Disposition: 09/27/16 17:44 Discharged to Home/Self Care. Impression: Urinary tract infection, site not specified, Malaise and fatigue. - Condition is Stable. - Discharge Instructions: Urinary Tract Infection, Fatigue. - Prescriptions for Cipro 500 mg Oral Tablet - take 1 tablet by ORAL route every 12 hours; 14 tablet. ZOFRAN ODT 4 mg - dissolve 1 tablet by ORAL route 4 times per day As needed do not chew, do not swallow whole; 10 tablet. - Work Release Form - 3 day, Medication Reconciliation, Local Pharmacy Hours form. - Follow up: Scott Wright; When: Call to arrange an appointment; Reason: Recheck today's complaints, Continuance of care. - Problem is new. - Symptoms are unchanged. Historical: - Allergies: No known drug Allergies; - Home Meds: 1. hydrochlorothiazide 25 mg Oral tab 1 tab once daily (Last dose: 09/26/2016) 2. Micardis 40 mg Oral tab 1 tab once daily (Last dose: 09/26/2016) 3. simvastatin 20 mg Oral tab 1 tab once daily (Last dose: 09/23/2016) 4. ibuprofen 800 mg Oral tab 1 tab (Last dose: 09/27/2016 09:15) 5. amoxicillin-pot clavulanate 875-125 mg Oral tab 1 tab every 12 hours (Last dose: 09/27/2016 10:15) 6. nitrofurantoin macrocrystal 100 mg Oral cap 1 cap twice a day (Last dose: 09/27/2016 10:15) 7. Tylenol 325 mg Oral tab 1 tab every 4 hours (Last dose: 09/27/2016 10:15) - PMHx: hyperlipidemia; Hypertension; - PSHx: eye surgery at age 4; - Social history: Smoking status: Patient states former smoker of tobacco. No barriers to communication noted, The patient speaks fluent Chinese, Speaks appropriately for age. - Family history: Not pertinent. - : The pt / caregiver states he / she is not on anticoagulants. Home medication list is obtained from the patient. - Exposure Risk Screening:: None identified. 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 3 in. (160.02 cm) (R); Pain 4/10; 17:29 BP 141 / 77; Pulse 82; Resp 20; Temp 98.2(T); Pulse Ox 98% on R/A; Pain 0/10; jc4 12:38 Body Mass Index 34.54 (88.45 kg, 160.02 cm) gr2 MDM: 15:57 IV Saline Lock ordered. mo1 15:57 NS 0.9% 1000 ml IV at bolus once ordered. mo1 15:57 Ondansetron 4 mg IVP once ordered. mo1 15:57 ketorolac 30 mg IVP once ordered. mo1 15:58 CBC with Diff Ordered. EDMS 15:58 BMP Ordered. EDMS 15:58 Liver Profile Ordered. EDMS 15:58 Lipase Ordered. EDMS 15:58 UA Ordered. EDMS 15:58 Urine Culture Ordered. EDMS 15:59 US Renal Ordered. EDMS 16:42 Financial registration complete. gjb 16:45 [facility] Payment Agreement was scanned into [employer] and attached to record. gjb 16:47 UA Reviewed. mo1 17:04 Lipase Reviewed. mo1 17:04 Liver Profile Reviewed. mo1 17:05 BMP Reviewed. mo1 17:10 CBC with Diff Reviewed. mo1 17:17 Ciprofloxacin 500 mg PO once ordered. mo1 17:26 US Renal Reviewed. mo1 09/28 09:23 T-Sheet-- Draft Copy was scanned into [employer] and attached to record. gb Administered Medications: 09/27 16:39 Drug: Ondansetron 4 mg [ondansetron HCl 2 mg/mL intravenous solution (2 mL)] Route: dsf IVP; Site: right hand; 16:39 Drug: ketorolac 30 mg [ketorolac 30 mg/mL (1 mL) injection solution (1 mL)] Route: IVP; dsf Site: right hand; 16:40 Drug: NS 0.9% 1000 ml [sodium chloride 0.9 % injection solution] Route: IV; Rate: dsf bolus; Site: right hand; 17:42 Follow up: IV Status: Completed infusion; IV Intake: 1000ml jc4 17:26 Drug: Ciprofloxacin 500 mg [ciprofloxacin 500 mg tablet (1 tabs)] Route: PO; jc4 Signatures: Dispatcher [employer] EDShanna Edmondson, Reg Reg gb Joyce Haynes RN RN hs1 Joyce Crowley RN RN jc4 Randy Lama PA PA Lou Ayala Desiree RN dsf The chart was reviewed and I authenticate all verbal orders and agree with the evaluation and treatment provided.Attachments: 16:45 [facility] Payment Agreement gjb 09/28 09:23 T-Sheet-- Draft Copy gb Chart Complete MTDD
--- NOTE | 2016-09-29 18:54 | EDDOCDS ---
Nurse's Notes [facility] Name: Diana Frank Age: 51 yrs Sex: Female : 1965 Arrival Date: 09/27/2016 Time: 12:36 Bed I7 / 29 Private MD: Scott Wright P. Diagnosis: Urinary tract infection, site not specified;Malaise and fatigue Presentation: 09/27 12:42 Presenting complaint: Patient states: seen here Sunday night and states not getting hs1 better. Patient states diagnosed with UTI and ear infection. No apt for primary care until tomorrow afternoon. Patient states not getting better. Adult Sepsis Screening: The patient does not have new or worsening altered mentation. Patient's respiratory rate is less than 22. Systolic blood pressure is greater than 100. Patient has a qSOFA score of 0- Negative Sepsis Screen. Suicide/Homicide risk assessment- the patient denies having any suicidal and/or homicidal ideations and does not present with any other emotional, behavioral or mental health complaints. Status: Patient is not a business services intern or dependent. Transition of care: patient was not received from another setting of care. 12:42 Acuity: KASSIE Level 3 hs1 12:42 Method Of Arrival: Walkin/Carried/Asstd hs1 Triage Assessment: 12:48 General: Appears in no apparent distress, Behavior is appropriate for age, cooperative. hs1 Pain: Location: i just feel miserable. HIV screening NA for this visit Offered previously. Respiratory: No deficits noted. GI: Reports diarrhea, nausea. Derm: Skin is pink, warm & dry. normal. CASHIER: 14:50 LMP N/A - Post-menopause hs1 Historical: - Allergies: No known drug Allergies; - Home Meds: 1. hydrochlorothiazide 25 mg Oral tab 1 tab once daily (Last dose: 09/26/2016) 2. Micardis 40 mg Oral tab 1 tab once daily (Last dose: 09/26/2016) 3. simvastatin 20 mg Oral tab 1 tab once daily (Last dose: 09/23/2016) 4. ibuprofen 800 mg Oral tab 1 tab (Last dose: 09/27/2016 09:15) 5. amoxicillin-pot clavulanate 875-125 mg Oral tab 1 tab every 12 hours (Last dose: 09/27/2016 10:15) 6. nitrofurantoin macrocrystal 100 mg Oral cap 1 cap twice a day (Last dose: 09/27/2016 10:15) 7. Tylenol 325 mg Oral tab 1 tab every 4 hours (Last dose: 09/27/2016 10:15) - PMHx: hyperlipidemia; Hypertension; - PSHx: eye surgery at age 4; - Social history: Smoking status: Patient states former smoker of tobacco. No barriers to communication noted, The patient speaks fluent Albanian, Speaks appropriately for age. - Family history: Not pertinent. - : The pt / caregiver states he / she is not on anticoagulants. Home medication list is obtained from the patient. - Exposure Risk Screening:: None identified. Screenin:27 Screening information is obtained from the patient. Fall risk: No risks identified. jc4 Assistance ADL's: requires no assistance with activities of daily living. Abuse/DV Screen: The patient / caregiver reports he/she is: not in a situation that causes fear, pain or injury. Nutritional screening: No deficits noted. home support is adequate. 17:29 Advance Directives: Currently, there is no health care proxy. There is no active DNR jc4 order. There is no living will. There is no Power of Cook [employer]. Assessment: 16:19 General: Appears in no apparent distress, comfortable, Behavior is appropriate for age, ck1 cooperative. Pain: Location: generalized Quality of pain is described as aching. Neurological: Level of Consciousness is awake, alert, obeys commands, Oriented to person, place, time. Respiratory: Respiratory effort is unlabored, Respiratory pattern is regular, symmetrical. GI: No deficits noted. Derm: Skin is intact, is healthy with good turgor, Skin is pink, warm & dry. 17:30 General: Appears in no apparent distress, comfortable, Behavior is cooperative, jc4 pleasant. Pain: Denies pain. Neurological: Level of Consciousness is awake, alert, Oriented to person, place, time. Respiratory: Airway is patent Respiratory effort is even, unlabored, Respiratory pattern is regular, symmetrical. Derm: Skin is pink, warm & dry. 17:52 General: Appears in no apparent distress, comfortable, Behavior is cooperative. jc4 Neurological: Level of Consciousness is awake, alert, Oriented to person, place, time. Respiratory: Airway is patent Respiratory effort is even, unlabored, Respiratory pattern is regular, symmetrical. Derm: Skin is pink, warm & dry. Vital Signs: 12:38 BP 123 / 77; Pulse 77; Resp 18 S; Temp 96.4(O); Pulse Ox 98% on R/A; Weight 88.45 kg gr2 (R); Height 5 ft. 3 in. (160.02 cm) (R); Pain 4/10; 17:29 BP 141 / 77; Pulse 82; Resp 20; Temp 98.2(T); Pulse Ox 98% on R/A; Pain 0/10; jc4 12:38 Body Mass Index 34.54 (88.45 kg, 160.02 cm) gr2 Vitals: 12:38 Log In Time: September 27, 2016 at 12:38. gr2 ED Course: 12:37 Patient visited by Navya Flores. gr2 12:37 Patient moved to Waiting gr2 12:38 Scott Wright is Private Physician. gr2 12:39 Patient visited by Navya Flores. gr2 12:39 Patient moved to Pre RCE gr2 12:44 Triage Initiated hs1 14:41 Patient moved to Triage 1 ct3 15:44 Randy Lama PA is PHCP. mo1 15:44 Mario Ramos MD is Attending Physician. mo1 15:49 Patient visited by Randy Lama PA. mo1 16:01 Joyce Crowley, RN is Primary Nurse. mlb1 16:01 Anu Roa,RN is Primary Nurse. mlb1 16:01 Patient moved to mlb1 16:18 Patient visited by Jeanine Nolan,DONALD. ck1 16:18 UA Sent. ck1 16:18 Urine Culture Sent. ck1 16:18 Lipase Sent. ck1 16:18 Liver Profile Sent. ck1 16:18 BMP Sent. ck1 16:19 The patient / caregiver is instructed regarding the plan of care and ED course. ck1 16:19 CBC with Diff Sent. ck1 16:19 Inserted saline lock: 22 gauge in right hand and blood collected. The patient tolerated ck1 the procedure well. 16:22 Patient moved to Ultrasound ck1 16:31 Patient moved to hgl 16:45 [facility] Payment Agreement was scanned into [employer] and attached to record. gjb 17:23 US Renal Returned. EDMS 17:30 Patient visited by Joyce Crowley RN. jc4 17:44 Scott Wright is Referral Physician. mo1 17:52 Discontinued lock intact, bleeding controlled, pressure dressing applied, No jc4 redness/swelling at site. No procedures done that require assistance. 09/28 09:23 T-Sheet-- Draft Copy was scanned into [employer] and attached to record. gb Administered Medications: 09/27 16:39 Drug: Ondansetron 4 mg [ondansetron HCl 2 mg/mL intravenous solution (2 mL)] Route: dsf IVP; Site: right hand; 16:39 Drug: ketorolac 30 mg [ketorolac 30 mg/mL (1 mL) injection solution (1 mL)] Route: IVP; dsf Site: right hand; 16:40 Drug: NS 0.9% 1000 ml [sodium chloride 0.9 % injection solution] Route: IV; Rate: dsf bolus; Site: right hand; 17:42 Follow up: IV Status: Completed infusion; IV Intake: 1000ml jc4 17:26 Drug: Ciprofloxacin 500 mg [ciprofloxacin 500 mg tablet (1 tabs)] Route: PO; jc4 Intake: 17:42 IV: 1000.00ml; Total: 1000.00ml. jc4 Order Results: Lab Order: CBC with Diff; SPEC'M 09/27/16 16:17 Test: WHITE BLOOD COUNT; Value: 13.8; Range: 4.0-10.0; Abnormal: Above high normal; Units: K/mm3; Status: F Test: RED BLOOD COUNT; Value: 4.73; Range: 4.00-5.40; Units: M/mm3; Status: F Test: HEMOGLOBIN; Value: 14.9; Range: 12.0-16.0; Units: g/dl; Status: F Test: HEMATOCRIT; Value: 42.5; Range: 36.0-47.0; Units: %; Status: F Test: MEAN CORPUSCULAR VOLUME; Value: 89.9; Range: 80.0-96.0; Units: fl; Status: F Test: MEAN CORPUSCULAR HEMOGLOBIN; Value: 31.4; Range: 27.0-33.0; Units: pg; Status: F Test: MEAN CORPUSCULAR HGB CONC; Value: 34.9; Range: 32.0-36.5; Units: g/dl; Status: F Test: RED CELL DISTRIBUTION WIDTH; Value: 11.3; Range: 11.5-14.5; Abnormal: Below low normal; Units: %; Status: F Test: PLATELET COUNT, AUTOMATED; Value: 165; Range: 150-450; Units: k/mm3; Status: F Test: NEUTROPHILS %; Value: 87.7; Range: 36.0-66.0; Abnormal: Above high normal; Units: %; Status: F Test: LYMPH %; Value: 5.0; Range: 24.0-44.0; Abnormal: Below low normal; Units: %; Status: F Test: MONO %; Value: 4.9; Range: 0.0-5.0; Units: %; Status: F Test: EOS %; Value: 0.4; Range: 0.0-3.0; Units: %; Status: F Test: BASO %; Value: 0.1; Range: 0.0-1.0; Units: %; Status: F Test: LARGE UNSTAINED CELL %; Value: 1.8; Range: 0.0-4.0; Units: %; Status: F Test: NEUTROPHILS #; Value: 12.1; Range: 1.8-7.7; Abnormal: Above high normal; Units: K/mm3; Status: F Test: LYMPH #; Value: 0.7; Range: 1.5-4.5; Abnormal: Below low normal; Units: K/mm3; Status: F Test: MONO #; Value: 0.7; Range: 0.0-0.8; Units: K/mm3; Status: F Test: EOS #; Value: 0.1; Range: 0.0-0.50; Units: K/mm3; Status: F Test: BASO #; Value: 0.0; Range: 0.0-0.2; Units: K/mm3; Status: F Test: LARGE UNSTAINED CELL #; Value: 0.3; Range: 0.0-0.4; Units: K/mm3; Status: F Lab Order: [facility]; SPEC'M 09/27/16 16:17 Test: GLUCOSE, FASTING; Value: 97; Range: 70-105; Units: MG/DL; Status: F Test: BLOOD UREA NITROGEN; Value: 10; Range: 7-18; Units: MG/DL; Status: F Test: CREATININE FOR GFR; Value: 0.74; Range: 0.55-1.02; Units: MG/DL; Status: F Test: GLOMERULAR FILTRATION RATE; Value: > 60.0; Range: >51; Status: F Test: SODIUM LEVEL; Value: 130; Range: 136-145; Abnormal: Below low normal; Units: MEQ/L; Status: F Test: POTASSIUM SERUM; Value: 3.5; Range: 3.5-5.1; Units: MEQ/L; Status: F Test: CHLORIDE LEVEL; Value: 91; Range: 98-107; Abnormal: Below low normal; Units: MEQ/L; Status: F Test: CARBON DIOXIDE LEVEL; Value: 28; Range: 21-32; Units: MEQ/L; Status: F Test: ANION GAP; Value: 11; Range: 8-16; Units: MEQ/L; Status: F Test: CALCIUM LEVEL; Value: 8.3; Range: 8.5-10.1; Abnormal: Below low normal; Units: MG/DL; Status: F Test Note: ; Units are mL/min/1.73 m2 Chronic Kidney Disease Staging per NKF: Stage I & II GFR >=60 Normal to Mildly Decreased Stage III GFR 30-59 Moderately Decreased Stage IV GFR 15-29 Severely Decreased Stage V GFR <15 Very Little GFR Left ESRD GFR <15 on RETAIL LOAN OFFICER Lab Order: Liver Profile; CLAUS'Jocelynn 09/27/16 16:17 Test: AST/SGOT; Value: 34; Range: 15-37; Units: U/L; Status: F Test: ALT/SGPT; Value: 28; Range: 12-78; Units: U/L; Status: F Test: ALKALINE PHOSPHATASE; Value: 94; Range: 45-117; Units: U/L; Status: F Test: BILIRUBIN,TOTAL; Value: 0.7; Range: 0.2-1.0; Units: MG/DL; Status: F Test: BILIRUBIN,DIRECT; Value: 0.1; Range: 0.0-0.2; Units: MG/DL; Status: F Test: TOTAL PROTEIN; Value: 7.2; Range: 6.4-8.2; Units: GM/DL; Status: F Test: ALBUMIN; Value: 3.3; Range: 3.2-5.2; Units: GM/DL; Status: F Test: ALBUMIN/GLOBULIN RATIO; Value: 0.85; Range: 1.00-1.93; Abnormal: Below low normal; Status: F Lab Order: Lipase; SPEC'M 09/27/16 16:17 Test: LIPASE; Value: 64; Range: 73-393; Abnormal: Below low normal; Units: U/L; Status: F Lab Order: Urine Culture; SPEC'M 09/27/16 16:17 Test: URINE CULTURE; Value: <EXTERNAL COMMENT eCWMed> FULL REPORT IN LAB NOTES (eCW and Medent).; Status: F Test: URINE CULTURE; Value: URINE CULTURE RESULT NO GROWTH; Status: F Lab Order: UA; SPEC'M 09/27/16 16:17 Test: APPEARANCE, URINE; Value: HAZY; Range: CLEAR; Status: F Test: COLOR, URINE; Value: YELLOW; Range: YELLOW; Status: F Test: PH,URINE; Value: 6.0; Range: 5.0-9.0; Units: UNITS; Status: F Test: SPECIFIC GRAVITY URINE AUTO; Value: 1.009; Range: 1.002-1.035; Status: F Test: PROTEIN, URINE AUTO; Value: NEGATIVE; Range: NEGATIVE; Units: mg/dL; Status: F Test: GLUCOSE, URINE (UA) AUTO; Value: NEGATIVE; Range: NEGATIVE; Units: mg/dL; Status: F Test: KETONE, URINE AUTO; Value: 1+; Range: NEGATIVE; Abnormal: Above high normal; Units: mg/dL; Status: F Test: UROBILINOGEN, URINE AUTO; Value: 0.2; Range: 0.0-2.0; Units: mg/dL; Status: F Test: BILIRUBIN, URINE AUTO; Value: NEGATIVE; Range: NEGATIVE; Status: F Test: NITRITE, URINE AUTO; Value: NEGATIVE; Range: NEGATIVE; Status: F Test: LEUKOCYTE ESTERASE, URINE AUTO; Value: 1+; Range: NEGATIVE; Abnormal: Above high normal; Status: F Test: BLOOD, URINE BLOOD; Value: 2+; Range: NEGATIVE; Abnormal: Above high normal; Status: F Test: WBC, URINE AUTO; Value: 17; Range: 0-3; Abnormal: Above high normal; Units: /HPF; Status: F Test: RBC, URINE AUTO; Value: 10; Range: 0-3; Abnormal: Above high normal; Units: /HPF; Status: F Test: BACTERIA, URINE AUTO; Value: 1+; Range: NEGATIVE; Abnormal: Above high normal; Status: F Test: SQUAMOUS EPITHELIAL CELL UR AU; Value: 1; Range: 0-6; Units: /HPF; Status: F Test: HYALINE CAST, URINE AUTO; Value: 0; Range: 0-1; Units: /LPF; Status: F Test: AMORPHOUS SEDIMENT; Value: SMALL; Range: NEGATIVE; Abnormal: Above high normal; Status: F Radiology Order: US Renal Test: US Renal REASON FOR EXAMINATION: rt flank pain, recent uti ; Urinary tract sonography:; ; History: Right flank pain; ; Findings: Scanning at the level of the urinary bladder shows no abnormality.; The urinary bladder is largely empty.; ; Renal cortical echogenicity pattern is normal and contours are smooth on both; sides. The right kidney measures 11.1 x 4.3 x 5.4 cm. Left renal dimensions are; 12.0 x 5.7 x 5.6 cm. There is a 1.4 cm cortical simple cyst in the upper pole of; the left kidney. No other cyst or mass is seen on either side. No; hydronephrosis is seen.; ; Impression:; ; Small simple cyst left kidney. Otherwise negative urinary tract sonogram. No; evidence of hydronephrosis.; ; ; Signed by; Pascual Reinoso MD 09/27/2016 05:12 P; Outcome: 17:44 Discharge ordered by Provider. mo1 17:52 Discharge Assessment: Patient awake, alert and oriented x 3. No cognitive and/or jc4 functional deficits noted. Patient verbalized understanding of disposition instructions. patient administered narcotics - no. The following High Risk Discharge criteria are identified: None. Discharged to home ambulatory. Condition: stable. Discharge instructions given to patient, Instructed on discharge instructions, follow up and referral plans. medication usage, Demonstrated understanding of instructions, medications, Pt was receptive of discharge instructions/ teaching. Work note provided to patient. No special radiology studies were completed. Property :Personal belongings accompany Pt. 17:53 Patient left the ED. jc4 Signatures: Dispatcher [employer] EDMS Shanna Plaza, Reg Reg gb Randy Estrada RN RN mlb1 Jeanine NolanRN RN ck1 Joyce Haynes, RN RN hs1 Joyce Crowley, DONALD RN jc4 Squires, Romelia, INSTRUMENT SPECIALIST INSTRUMENT SPECIALIST ct3 Myla Johnson RN RN dsf Ly, Donn hgl Navya Flores gr2 Randy Lama PA PA moLou Lay Chart Complete MTDD
--- NOTE | 2016-09-29 18:54 | EDDOCDS ---
Physician Documentation [facility] Name: Diana Frank Age: 51 yrs Sex: Female : 1965 Arrival Date: 09/27/2016 Time: 12:36 Bed I7 / 29 Private MD: Scott Wright P. Disposition: 09/27/16 17:44 Discharged to Home/Self Care. Impression: Urinary tract infection, site not specified, Malaise and fatigue. - Condition is Stable. - Discharge Instructions: Urinary Tract Infection, Fatigue. - Prescriptions for Cipro 500 mg Oral Tablet - take 1 tablet by ORAL route every 12 hours; 14 tablet. ZOFRAN ODT 4 mg - dissolve 1 tablet by ORAL route 4 times per day As needed do not chew, do not swallow whole; 10 tablet. - Work Release Form - 3 day, Medication Reconciliation, Local Pharmacy Hours form. - Follow up: Scott Wright; When: Call to arrange an appointment; Reason: Recheck today's complaints, Continuance of care. - Problem is new. - Symptoms are unchanged. Historical: - Allergies: No known drug Allergies; - Home Meds: 1. hydrochlorothiazide 25 mg Oral tab 1 tab once daily (Last dose: 09/26/2016) 2. Micardis 40 mg Oral tab 1 tab once daily (Last dose: 09/26/2016) 3. simvastatin 20 mg Oral tab 1 tab once daily (Last dose: 09/23/2016) 4. ibuprofen 800 mg Oral tab 1 tab (Last dose: 09/27/2016 09:15) 5. amoxicillin-pot clavulanate 875-125 mg Oral tab 1 tab every 12 hours (Last dose: 09/27/2016 10:15) 6. nitrofurantoin macrocrystal 100 mg Oral cap 1 cap twice a day (Last dose: 09/27/2016 10:15) 7. Tylenol 325 mg Oral tab 1 tab every 4 hours (Last dose: 09/27/2016 10:15) - PMHx: hyperlipidemia; Hypertension; - PSHx: eye surgery at age 4; - Social history: Smoking status: Patient states former smoker of tobacco. No barriers to communication noted, The patient speaks fluent Belarusian, Speaks appropriately for age. - Family history: Not pertinent. - : The pt / caregiver states he / she is not on anticoagulants. Home medication list is obtained from the patient. - Exposure Risk Screening:: None identified. SIZE CUTTER: 09/27 14:50 LMP N/A - Post-menopause hs1 Vital Signs: 12:38 BP 123 / 77; Pulse 77; Resp 18 S; Temp 96.4(O); Pulse Ox 98% on R/A; Weight 88.45 kg / gr2 195 lbs (R); Height 5 ft. 3 in. (160.02 cm) (R); Pain 4/10; 17:29 BP 141 / 77; Pulse 82; Resp 20; Temp 98.2(T); Pulse Ox 98% on R/A; Pain 0/10; jc4 12:38 Body Mass Index 34.54 (88.45 kg, 160.02 cm) gr2 MDM: 15:57 IV Saline Lock ordered. mo1 15:57 NS 0.9% 1000 ml IV at bolus once ordered. mo1 15:57 Ondansetron 4 mg IVP once ordered. mo1 15:57 ketorolac 30 mg IVP once ordered. mo1 15:58 CBC with Diff Ordered. EDMS 15:58 BMP Ordered. EDMS 15:58 Liver Profile Ordered. EDMS 15:58 Lipase Ordered. EDMS 15:58 UA Ordered. EDMS 15:58 Urine Culture Ordered. EDMS 15:59 US Renal Ordered. EDMS 16:42 Financial registration complete. gjb 16:45 [facility] Payment Agreement was scanned into [employer] and attached to record. gjb 16:47 UA Reviewed. mo1 17:04 Lipase Reviewed. mo1 17:04 Liver Profile Reviewed. mo1 17:05 BMP Reviewed. mo1 17:10 CBC with Diff Reviewed. mo1 17:17 Ciprofloxacin 500 mg PO once ordered. mo1 17:26 US Renal Reviewed. mo1 09/28 09:23 T-Sheet-- Draft Copy was scanned into [employer] and attached to record. gb Administered Medications: 09/27 16:39 Drug: Ondansetron 4 mg [ondansetron HCl 2 mg/mL intravenous solution (2 mL)] Route: dsf IVP; Site: right hand; 16:39 Drug: ketorolac 30 mg [ketorolac 30 mg/mL (1 mL) injection solution (1 mL)] Route: IVP; dsf Site: right hand; 16:40 Drug: NS 0.9% 1000 ml [sodium chloride 0.9 % injection solution] Route: IV; Rate: dsf bolus; Site: right hand; 17:42 Follow up: IV Status: Completed infusion; IV Intake: 1000ml jc4 17:26 Drug: Ciprofloxacin 500 mg [ciprofloxacin 500 mg tablet (1 tabs)] Route: PO; jc4 Signatures: Dispatcher [employer] EDShanna Edmondson, Reg Reg gb Joyce Haynes RN RN hs1 Joyce Crowley RN RN jc4 Randy Lama PA PA Lou Ayala Desiree RN dsf The chart was reviewed and I authenticate all verbal orders and agree with the evaluation and treatment provided.Attachments: 16:45 [facility] Payment Agreement gjb 09/28 09:23 T-Sheet-- Draft Copy gb Chart Complete MTDD
== END 2016-09-27 17:53 | disposition home or self-care (01) ==
LOC: M ED 12:36
DX: N10 Acute pyelonephritis (principal); E86.0 Dehydration; N39.0 Urinary tract infection, site not specified; R53.81 Other malaise; R53.83 Other fatigue; N28.1 Cyst of kidney, acquired; I10 Essential (primary) hypertension; E78.5 Hyperlipidemia, unspecified; Z79.899 Other long term (current) drug therapy; Z79.2 Long term (current) use of antibiotics
CPT/HCPCS: 36415; 76775; 80048; 80076; 81001; 83690; 85025; 87086; 96361; 96374; 96375; 99284; J1885; J2405

== ENCOUNTER → 2017-03-07 | Outpatient (CLI) | payer OTHER ==
[~2017-03-07] VITALS: Ht 160 cm; Wt 88.5 kg
[~2017-03-07] MED LIST: CALCTAB29 PO; FLON1SPR; HYDR25TAB PO; MICA40TA PO; MULT1TAB10 PO; NS 1,000 ML IV ONE; PATA2.5S OU; PROPOFOL 200 MG/20 ML VIAL As Ordered ONE; SIMV20TA2 PO; [UNRECOGNIZED DRUG - CODE] PO
--- NOTE | 2017-03-07 10:22 | ROOR ---
Patient Name: Diana Frank Procedure Date: 03/07/2017 9:43 AM Date of : 1965 Age: 52 Room: [facility] Gender: Female Note Status: Finalized Procedure: Colonoscopy Indications: Screening for colorectal malignant neoplasm Providers: Diego Jimenez MD Referring MD: SCARLETT MENDEZ MD Requesting Provider: Medicines: Monitored Anesthesia Care Complications: No immediate complications. Procedure: Pre-Anesthesia Assessment: - Prior to the procedure, a History and Physical was performed, and patient medications and allergies were reviewed. The patient is competent. The risks and benefits of the procedure and the sedation options and risks were discussed with the patient. All questions were answered and informed consent was obtained. Patient identification and proposed procedure were verified by the physician, the nurse and the anesthesiologist in the pre-procedure area in the endoscopy suite. Mental Status Examination: alert and oriented. Airway Examination: normal oropharyngeal airway and neck mobility. Respiratory Examination: clear to auscultation. CV Examination: normal. Prophylactic Antibiotics: The patient does not require prophylactic antibiotics. Prior Anticoagulants: The patient has taken no previous anticoagulant or antiplatelet agents. ASA Grade Assessment: II - A patient with mild systemic disease. After reviewing the risks and benefits, the patient was deemed in satisfactory condition to undergo the procedure. The anesthesia plan was to use monitored anesthesia care (MAC). Immediately prior to administration of medications, the patient was re-assessed for adequacy to receive sedatives. The heart rate, respiratory rate, oxygen saturations, blood pressure, adequacy of pulmonary ventilation, and response to care were monitored throughout the procedure. The physical status of the patient was re-assessed after the procedure. The Colonoscope was introduced through the anus and advanced to the cecum, identified by appendiceal orifice and ileocecal valve. The colonoscopy was technically difficult and complex due to significant looping and a tortuous colon. Successful completion of the procedure was aided by using manual pressure. The patient tolerated the procedure well. The quality of the bowel preparation was good. Findings: The perianal and digital rectal examinations were normal. A 3 to 6 mm polyp was found in the ascending colon. The polyp was sessile. The polyp was removed with a hot snare. Resection and retrieval were complete. Estimated blood loss: none. The entire examined colon appeared normal on direct and retroflexion views. Impression: - One 3 to 6 mm polyp in the ascending colon, removed with a hot snare. Resected and retrieved. - The entire examined colon is normal on direct and retroflexion views. Recommendation: - Discharge patient to home (ambulatory). - Telephone my office for pathology results in 2 weeks. - Repeat colonoscopy in 5 years for surveillance based on pathology results. Diego Jimenez MD Diego Jimenez MD 03/07/2017 10:22:29 AM This report has been signed electronically. Number of Addenda: 0 Note Initiated On: 03/07/2017 9:43 AM Estimated Blood Loss: Estimated blood loss: none.
[2017-03-07 10:40] VITALS: BP 130/74
== END ==
LOC: M OPP 08:43
PROVIDERS: ATTEND Surgery
DX: Z12.11 Encounter for screening for malignant neoplasm of colon (principal); D12.2 Benign neoplasm of ascending colon; I10 Essential (primary) hypertension; E78.00 Pure hypercholesterolemia, unspecified; Z87.891 Personal history of nicotine dependence; Z79.899 Other long term (current) drug therapy; Z91.040 Latex allergy status; Z91.018 Allergy to other foods

== ENCOUNTER → 2018-03-08 | Outpatient (CLI) | payer OTHER | LOC: M LRY 10:08 | DX: R07.9 Chest pain, unspecified (principal) ==

== ENCOUNTER → 2018-07-30 | Outpatient (REF) | payer OTHER | LOC: M LAB REF 13:23 | DX: R30.0 Dysuria (principal) ==

== ENCOUNTER 2019-12-31 06:52 | Emergency (ER) | payer OTHER ==
[~2019-12-31] VITALS: Ht 160 cm; Wt 90.9 kg
[~2019-12-31 06:52] MED LIST changes: -NS 1,000 ML IV ONE; -PROPOFOL 200 MG/20 ML VIAL As Ordered ONE; -SIMV20TA2 PO; +SIMV20TA22 PO
[2019-12-31 07:29] LABS: BASO # 0.1 10^3/uL (0.0-0.2); BASO % 0.6 % (0.0-1.0); EOS # 0.3 10^3/uL (0.0-0.5); EOS % 3.9 % (0.0-3.0); HEMATOCRIT 43.5 % (36.0-47.0); HEMOGLOBIN 14.8 g/dl (12.0-15.5); LYMPH # 1.7 10^3/uL (1.5-5.0); LYMPH % 21.3 % (24.0-44.0); MEAN CORPUSCULAR HEMOGLOBIN 31.9 pg (27.0-33.0); MEAN CORPUSCULAR VOLUME 93.8 fl (80.0-96.0); MONO # 0.4 10^3/uL (0.0-0.8); MONO % 4.5 % (0.0-5.0); NEUTROPHILS # 5.6 10^3/uL (1.5-8.5); NEUTROPHILS % 69.5 % (36.0-66.0); PLATELET COUNT, AUTOMATED 211 10^3/uL (150-450); RED BLOOD COUNT 4.64 10^6/uL (4.00-5.40)
[2019-12-31] MEDS ORDERED: ASPIRIN 325 MG TAB PO ONE (07:30)
[2019-12-31] MEDS ORDERED: hydrALAZINE 20MG/ML 1ML VIAL (J0360 PER 20MG) IV ONE (07:30)
[2019-12-31 07:45] LABS: D-DIMER QUANT 666.96 ng/ml (<500)
--- NOTE | 2019-12-31 07:45 | REP ---
Clinical: Acute chest pain . Comparison: 03/08/2018 . Findings: The mediastinum and cardiac silhouette are stable and within normal limits for portable technique. The lung hu are clear without acute consolidation, effusion, or pneumothorax. Skeletal structures are intact. Impression: No acute cardiopulmonary process appreciated. Electronically Signed by Jayesh Plummer MD 12/31/2019 07:36 A
[2019-12-31 08:09] LABS: BLOOD UREA NITROGEN 16 MG/DL (7-18); CALCIUM LEVEL 8.4 MG/DL (8.5-10.1); CARBON DIOXIDE LEVEL 26 MEQ/L (21-32); CHLORIDE LEVEL 106 MEQ/L (98-107); CK-MB VALUE MASS 1.8 NG/ML (<3.6); CPK CREATINE PHOSPHOKINASE 150 U/L (26-192); CREATININE FOR GFR 0.74 MG/DL (0.55-1.30); GLOMERULAR FILTRATION RATE > 60.0 (>51); GLUCOSE, FASTING 133 MG/DL (70-100); POTASSIUM SERUM 4.5 MEQ/L (3.5-5.1); SODIUM LEVEL 140 MEQ/L (136-145); TROPONIN I < 0.02 NG/ML (< 0.10)
[2019-12-31] MEDS ORDERED: ISOVUE-370 76% 100ML VIAL As Ordered ONE (08:36)
[2019-12-31 08:38] LABS: ALBUMIN 3.4 GM/DL (3.2-5.2); ALT/SGPT 36 U/L (12-78); BILIRUBIN,DIRECT < 0.1 MG/DL (0.0-0.2); BILIRUBIN,TOTAL 0.5 MG/DL (0.2-1.0); NT-PRO BNP 20 PG/ML (<125); TOTAL PROTEIN 6.8 GM/DL (6.4-8.2)
[2019-12-31] MEDS ORDERED: GI COCKTAIL 50ML BTL(HYOSCYAMINE/MAALOX/LIDOCAINE VISCOUS)(1:3:1) PO ONE (08:45)
--- NOTE | 2019-12-31 08:45 | ECGEPIP ---
[facility] - ED Test Date: 2019-12-31 Pat Name: LAURY CONNOR Department: Room: - Gender: Female Maintenance Trainer: vicnete : 1965 Requested By: LOPEZ To Order Number: [id number] Reading MD: Ruy Hernández Measurements Intervals [place] Rate: 81 P: -8 NC: 177 QRS: 5 QRSD: 89 T: 9 QT: 362 QTc: 422 Interpretive Statements SINUS RHYTHM NO PRIORS FOR COMPARISON Electronically Signed on 12-31-2019 8:44:55 EDT by Ruy Hernández
--- NOTE | 2019-12-31 09:05 | REP ---
CT pulmonary angiogram: With IV contrast. History: Chest pressure, tightness. Comparison studies: No comparison chest CT studies. Comparison is made with today's portable chest x-ray. Contrast dose: 75 ML of Isovue [address] technique: Helical scanning is acquired and overlapping 1.5 mm and contiguous 3 mm axial images are reformatted. In addition, maximum intensity projection and multiplanar re-formation images are generated in sagittal and coronal imaging projections. CT pulmonary angiographic findings: There is good opacification of the pulmonary arterial tree. No filling defect or vessel cutoff is seen to suggest pulmonary embolism. The thoracic aorta enhances homogeneously and is normal in course and caliber. No aneurysm or dissection is apparent. There is no evidence of pleural or pericardial effusion. Normal adrenal glands are seen. There is mild diffuse fatty infiltration of the liver. Visualized upper abdominal structures are otherwise unremarkable. There is no evidence of hilar or mediastinal mass or adenopathy. Lung hu are clear. No infiltrate, mass, or significant pulmonary nodule is appreciated. No bony destructive lesion is seen. There is a small hypodense nodule inferiorly in the left lobe of the thyroid. Impression: No CT evidence of pulmonary embolus. No active cardiopulmonary disease seen. Electronically Signed by Pascual Reinoso MD 12/31/2019 08:57 A
[2019-12-31 10:55] LABS: CK-MB VALUE MASS 4.4 NG/ML (<3.6); MB/CK RELATIVE INDEX 1.33 (< OR =4); TROPONIN I 0.26 NG/ML (< 0.10)
[2019-12-31 12:41] LABS: INR 0.99; PROTHROMBIN TIME 12.8 SECONDS (11.8-14.0)
[2019-12-31] MEDS ORDERED: CYCLOBENZAPRINE 5MG TABLET PO ONE (13:30)
[2019-12-31] MEDS ORDERED: HEPARIN DRIP 25,000 UNITS in IV 1 EA IV SCH (13:40)
[2019-12-31] MEDS ORDERED: HEPARIN SOD (PORCINE) 5000UNITS/ML VIAL (J1644 PER 1000UNITS) IV ONE (13:45)
[2019-12-31 14:45] VITALS: BP 145/78
--- NOTE | 2020-01-01 18:04 | ECGEPIP ---
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
== END 2019-12-31 14:50 | disposition short-term general hospital (02) ==
LOC: M ED 06:52
DX: I20.0 Unstable angina (principal); I10 Essential (primary) hypertension; Z82.49 Family history of ischemic heart disease and other diseases of the circulatory system; Z79.899 Other long term (current) drug therapy; Z91.018 Allergy to other foods; Z91.040 Latex allergy status; Z91.048 Other nonmedicinal substance allergy status
CPT/HCPCS: 71045; 71275; 80048; 80076; 82550; 82553; 83880; 84484; 85025; 85379; 85610; 85730; 93005; 93041; 94760; 96374; 96375; 99285; J0360; J1644; Q9967; U0002

== ENCOUNTER 2020-07-04 07:24 | Emergency (ER) | payer OTHER, SELFPAY ==
[2020-07-04] MEDS ORDERED: NITROGLYCERIN 0.4 MG SUBL TABLET SL PRN (08:00)
--- NOTE | 2020-07-04 09:06 | REP ---
INDICATION: CHEST PAIN. COMPARISON: None. FINDINGS: The technique utilized in obtaining the radiograph has magnified the cardiac silhouette and accentuated the interstitial markings. The superior mediastinal structures are midline. The cardiac silhouette is unremarkable in size, shape, and position. The diaphragmatic surfaces of the lungs are regular, and the costophrenic angles are clear. The pulmonary hu are clear. The imaged osseous structures are intact. IMPRESSION: There is no acute cardiopulmonary disease. <Electronically signed by Fahad Dalal > 07/04/20 0902
[2020-07-04 09:40] LABS: BASO % 0.5 % (0.0-1.0); EOS # 0.1 10^3/uL (0.0-0.5); HEMOGLOBIN 15.2 g/dl (12.0-15.5); LYMPH # 1.4 10^3/uL (1.5-5.0); LYMPH % 17.4 % (24.0-44.0); MEAN CORPUSCULAR HEMOGLOBIN 31.3 pg (27.0-33.0); MEAN CORPUSCULAR HGB CONC 33.8 g/dl (32.0-36.5); MEAN CORPUSCULAR VOLUME 92.8 fl (80.0-96.0); MONO # 0.4 10^3/uL (0.0-0.8); NEUTROPHILS # 6.1 10^3/uL (1.5-8.5); NEUTROPHILS % 75.7 % (36.0-66.0); PLATELET COUNT, AUTOMATED 191 10^3/uL (150-450); RED BLOOD COUNT 4.85 10^6/uL (4.00-5.40)
[2020-07-04 10:00] LABS: ALBUMIN 3.7 GM/DL (3.2-5.2); BILIRUBIN,DIRECT 0.2 MG/DL (0.0-0.2); BILIRUBIN,TOTAL 0.5 MG/DL (0.2-1.0); THYROID STIMULATING HORMONE 3.36 uIU/ML (0.358-3.740); TOTAL PROTEIN 7.5 GM/DL (6.4-8.2)
[2020-07-04 10:22] VITALS: BP 176/86
[2020-07-04 12:19] LABS: INR 1.02; PROTHROMBIN TIME 13.6 SECONDS (12.5-14.3)
[2020-07-04 12:20] LABS: PARTIAL THROMBOPLASTIN TIME 30.8 SECONDS (24.2-38.5)
[2020-07-04] MEDS ORDERED: HEPARIN DRIP 25,000 UNITS in IV 1 EA IV SCH (12:22)
[2020-07-04] MEDS ORDERED: HEPARIN SOD (PORCINE) 5000UNITS/ML 1ML VIAL/SYRINGE IV ONE (12:30)
[2020-07-04 14:59] VITALS: BP 169/88
--- NOTE | 2020-07-05 10:12 | ECGEPIP ---
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
--- NOTE | 2020-07-05 10:13 | ECGEPIP ---
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
== END 2020-07-04 14:59 | disposition short-term general hospital (02) ==
LOC: M ED 07:24
DX: I25.110 Atherosclerotic heart disease of native coronary artery with unstable angina pectoris (principal); I11.9 Hypertensive heart disease without heart failure; E78.5 Hyperlipidemia, unspecified; Z95.5 Presence of coronary angioplasty implant and graft; Z82.49 Family history of ischemic heart disease and other diseases of the circulatory system; Z91.040 Latex allergy status; Z91.018 Allergy to other foods; Z79.899 Other long term (current) drug therapy
CPT/HCPCS: 36415; 71045; 80047; 80076; 83690; 84443; 84484; 85025; 85610; 85730; 93005; 93041; 94760; 96374; 99285; J1644; U0002

== ENCOUNTER 2020-11-26 03:18 | Emergency (ER) | payer OTHER ==
[~2020-11-26] VITALS: Ht 160 cm; Wt 83.3 kg
[~2020-11-26 03:18] MED LIST changes: +HYDR-3490 PO; -HYDR25TAB PO
[2020-11-26] MEDS ORDERED: ATOR80TA59 PO (03:29)
[2020-11-26] MEDS ORDERED: METO1TAB32 PO (03:29)
[2020-11-26] MEDS ORDERED: ASPI-427 PO (03:29)
[2020-11-26] MEDS ORDERED: PLAV1TAB2 PO (03:29)
[2020-11-26 04:10] LABS: BASO % 0.4 % (0.0-1.0); EOS # 0.1 10^3/uL (0.0-0.5); EOS % 1.2 % (0.0-3.0); HEMATOCRIT 42.3 % (36.0-47.0); HEMOGLOBIN 14.3 g/dl (12.0-15.5); LYMPH # 1.9 10^3/uL (1.5-5.0); LYMPH % 20.7 % (24.0-44.0); MEAN CORPUSCULAR HEMOGLOBIN 32.3 pg (27.0-33.0); MEAN CORPUSCULAR HGB CONC 33.8 g/dl (32.0-36.5); MEAN CORPUSCULAR VOLUME 95.5 fl (80.0-96.0); MONO # 0.5 10^3/uL (0.0-0.8); MONO % 5.3 % (2.0-8.0); NEUTROPHILS # 6.6 10^3/uL (1.5-8.5); NEUTROPHILS % 72.2 % (36.0-66.0); PLATELET COUNT, AUTOMATED 186 10^3/uL (150-450); RED BLOOD COUNT 4.43 10^6/uL (4.00-5.40); WHITE BLOOD COUNT 9.2 10^3/uL (4.0-10.0)
[2020-11-26 04:20] LABS: INR 0.95; PROTHROMBIN TIME 12.9 SECONDS (12.5-14.3)
[2020-11-26 04:42] LABS: ALBUMIN 3.6 GM/DL (3.2-5.2); ALT/SGPT 34 U/L (12-78); BILIRUBIN,DIRECT 0.2 MG/DL (0.0-0.2); BILIRUBIN,TOTAL 0.4 MG/DL (0.2-1.0); BLOOD UREA NITROGEN 19 MG/DL (7-18); CALCIUM LEVEL 8.4 MG/DL (8.5-10.1); CARBON DIOXIDE LEVEL 26 MEQ/L (21-32); CHLORIDE LEVEL 111 MEQ/L (98-107); CK-MB VALUE MASS 3.3 NG/ML (<3.6); CPK CREATINE PHOSPHOKINASE 191 U/L (26-192); GLOMERULAR FILTRATION RATE > 60.0 (>51); GLUCOSE, FASTING 97 MG/DL (70-100); LIPASE 127 U/L (73-393); MB/CK RELATIVE INDEX 1.73 (< OR =4); POTASSIUM SERUM 3.8 MEQ/L (3.5-5.1); SODIUM LEVEL 143 MEQ/L (136-145); TOTAL PROTEIN 6.6 GM/DL (6.4-8.2); TROPONIN I < 0.02 NG/ML (< 0.10)
--- NOTE | 2020-11-26 04:48 | REPVR ---
PROCEDURE INFORMATION: Exam: XR Chest Exam date and time: 11/26/20 (4:15am) Age: 55 years old Clinical indication: Chest pain TECHNIQUE: Imaging protocol: XR of the chest Views: 1 view COMPARISON: Portable CXR of 07/04/20 FINDINGS: Lungs: Unremarkable. No consolidation. Pleural spaces: Unremarkable. No pleural effusions. No pneumothorax. Heart/Mediastinum: Heart size may be top normal (stable). Bones/joints: Unremarkable. IMPRESSION: No acute findings. Lung hu remain clear. Electronically signed by: Asya Mckay On 11/26/2020 04:48:23 AM
[2020-11-26] MEDS ORDERED: ASPIRIN 81 MG CHEW TABLET As Ordered ONE (05:55)
[2020-11-26] MEDS ORDERED: ASPIRIN 81 MG CHEW TABLET PO ONE (06:05)
[2020-11-26 10:39] LABS: CK-MB VALUE MASS 2.8 NG/ML (<3.6); CPK CREATINE PHOSPHOKINASE 183 U/L (26-192); MB/CK RELATIVE INDEX 1.53 (< OR =4); TROPONIN I < 0.02 NG/ML (< 0.10)
[2020-11-26 12:15] VITALS: BP 138/82
--- NOTE | 2020-11-26 21:01 | ECGEPIP ---
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
--- NOTE | 2020-11-26 21:08 | ECGEPIP ---
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
== END 2020-11-26 12:29 | disposition home or self-care (01) ==
LOC: M ED 03:18
DX: R07.89 Other chest pain (principal); I10 Essential (primary) hypertension; E78.5 Hyperlipidemia, unspecified; I25.10 Atherosclerotic heart disease of native coronary artery without angina pectoris; Z95.5 Presence of coronary angioplasty implant and graft; Z79.899 Other long term (current) drug therapy; Z79.82 Long term (current) use of aspirin; Z91.018 Allergy to other foods; Z91.040 Latex allergy status; Z91.048 Other nonmedicinal substance allergy status

== ENCOUNTER → 2021-07-06 | Outpatient (CLI) | payer OTHER ==
[~2021-07-06] MED LIST changes: +ASPI-427 PO; +ATOR80TA59 PO; +METO1TAB32 PO; +PLAV1TAB2 PO
--- NOTE | 2021-07-06 15:32 | REP ---
INDICATION: SACROCOCCYGEAL DISORDERS, NOT ELSEWHERE CLASSIFIED COMPARISON: None. TECHNIQUE: Four views of the bilateral sacroiliac joints FINDINGS: Bilateral sacroiliac joints are symmetric and essentially age-appropriate. The visualized osseous structures are intact and demonstrate age-related changes. IMPRESSION: 1. Symmetric age-appropriate appearance to the bilateral sacroiliac joints. <Electronically signed by Jayesh Plummer > 07/06/21 [id number]
--- NOTE | 2021-07-06 15:33 | REP ---
INDICATION: SACROCOCCYGEAL DISORDERS, NOT ELSEWHERE CLASSIFIED COMPARISON: None. TECHNIQUE: Internal rotation, external rotation, and Y view. FINDINGS: Generalized age-related changes are appreciated without overt osteoarthritic findings. No acute fracture or dislocation. Subacromial space is normal. No periarticular calcifications or loose bodies. Surrounding soft tissues normal. IMPRESSION: Essentially age-appropriate right shoulder radiographs. <Electronically signed by Jayesh Plummer > 07/06/21 [id number]
== END ==
LOC: M PLALAB 14:58
PROVIDERS: ATTEND Family Medicine
DX: M53.3 Sacrococcygeal disorders, not elsewhere classified (principal)

== ENCOUNTER → 2021-07-22 | Outpatient (CLI) | payer OTHER ==
--- NOTE | 2021-07-22 14:20 | REPVR ---
PROCEDURE INFORMATION: Exam: MR Head Without and With Contrast Exam date and time: 07/22/2021 2:04 PM Age: 56 years old Clinical indication: Visual disturbance; Additional info: Loss of vision TECHNIQUE: Imaging protocol: MR of the head without and with intravenous contrast. Contrast material: PROHANCE; Contrast volume: 17 ml; Contrast route: INTRAVENOUS (IV); COMPARISON: No relevant prior studies available. FINDINGS: Brain: There is no extra-axial collection or intra-axial mass. Normal parenchymal signal is preserved.. There is no diffusion restriction. There is no abnormal enhancement within the brain. Cerebral ventricles: Normal. No ventriculomegaly. Bones/joints: Unremarkable. Paranasal sinuses: Normal as visualized. No acute sinusitis. Mastoid air cells: Normal as visualized. No mastoid effusion. Orbital cavity: Unremarkable. Soft tissues: Unremarkable. IMPRESSION: No acute findings. Electronically signed by: Magda Redmond On 07/22/2021 14:20:29 PM
--- NOTE | 2021-07-22 14:22 | REPVR ---
PROCEDURE INFORMATION: Exam: MRA Head Without Contrast; Arteriography Exam date and time: 07/22/2021 2:04 PM Age: 56 years old Clinical indication: Visual disturbance; Transient visual loss; Additional info: Loss of vision TECHNIQUE: Imaging protocol: Magnetic resonance angiography head without contrast. Exam focused on the arteries. COMPARISON: No relevant prior studies available. FINDINGS: ANTERIOR CIRCULATION: Right internal carotid artery: Intracranial segment is patent with no significant stenosis. No aneurysm. Right middle cerebral artery: No occlusion or significant stenosis. No aneurysm. Right anterior cerebral artery: No occlusion or significant stenosis. No aneurysm. Left internal carotid artery: Intracranial segment is patent with no significant stenosis. No aneurysm. Left middle cerebral artery: No occlusion or significant stenosis. No aneurysm. Left anterior cerebral artery: No occlusion or significant stenosis. No aneurysm. POSTERIOR CIRCULATION: Right vertebral artery: No occlusion or significant stenosis. No aneurysm. Left vertebral artery: No occlusion or significant stenosis. No aneurysm. Basilar artery: No occlusion or significant stenosis. No aneurysm. Right posterior cerebral artery: There is a origin of the right posterior cerebral artery. No occlusion or significant stenosis. No aneurysm. Left posterior cerebral artery: No occlusion or significant stenosis. No aneurysm. IMPRESSION: No stenosis or occlusion. Electronically signed by: Magda Redmond On 07/22/2021 14:22:05 PM
== END ==
LOC: M PLARAD 13:01
PROVIDERS: ATTEND Family Medicine
DX: H54.7 Unspecified visual loss (principal)

== ENCOUNTER → 2021-11-23 | Outpatient (CLI) | payer OTHER | LOC: M WHC 15:05 | DX: Z12.31 Encounter for screening mammogram for malignant neoplasm of breast (principal) ==

== ENCOUNTER → 2021-12-23 | Outpatient (CLI) | payer OTHER | LOC: M PLARAD 12:24 | PROVIDERS: ATTEND Physician Assistant | DX: R93.7 Abnormal findings on diagnostic imaging of other parts of musculoskeletal system (principal); M54.50 Low back pain, unspecified ==

== ENCOUNTER 2022-01-13 06:14 | Emergency (ER) | payer OTHER ==
[~2022-01-13] VITALS: Ht 160 cm; Wt 87.5 kg
[2022-01-13 08:21] LABS: BASO # 0.1 10^3/uL (0.0-0.2); BASO % 0.5 % (0.0-1.0); EOS # 0.1 10^3/uL (0.0-0.5); EOS % 0.8 % (0.0-3.0); HEMATOCRIT 40.8 % (36.0-47.0); HEMOGLOBIN 13.8 g/dl (12.0-15.5); LYMPH # 1.3 10^3/uL (1.5-5.0); LYMPH % 9.6 % (24.0-44.0); MEAN CORPUSCULAR HEMOGLOBIN 32.2 pg (27.0-33.0); MEAN CORPUSCULAR HGB CONC 33.8 g/dl (32.0-36.5); MEAN CORPUSCULAR VOLUME 95.1 fl (80.0-96.0); MONO # 0.7 10^3/uL (0.0-0.8); MONO % 4.8 % (2.0-8.0); NEUTROPHILS # 11.6 10^3/uL (1.5-8.5); NEUTROPHILS % 83.9 % (36.0-66.0); PLATELET COUNT, AUTOMATED 212 10^3/uL (150-450); RED BLOOD COUNT 4.29 10^6/uL (4.00-5.40); WHITE BLOOD COUNT 13.9 10^3/uL (4.0-10.0)
[2022-01-13 08:55] LABS: BLOOD UREA NITROGEN 12 MG/DL (7-18); CALCIUM LEVEL 9.1 MG/DL (8.5-10.1); CARBON DIOXIDE LEVEL 24 MEQ/L (21-32); CHLORIDE LEVEL 108 MEQ/L (98-107); CREATININE FOR GFR 0.75 MG/DL (0.55-1.30); GLOMERULAR FILTRATION RATE > 60.0 (>51); GLUCOSE, FASTING 122 MG/DL (70-100); SODIUM LEVEL 141 MEQ/L (136-145)
[2022-01-13] MEDS ORDERED: PHEN-372 PO (09:07)
[2022-01-13] MEDS ORDERED: NITR1CAP11 PO (09:07)
[2022-01-13] MEDS ORDERED: PYRI1TAB5 PO (09:09)
[2022-01-13] MEDS ORDERED: MACR100C43 PO (09:09)
[2022-01-13] MEDS ORDERED: PHENAZOPYRIDINE 100 MG TAB PO ONE (09:10)
[2022-01-13] MEDS ORDERED: NITROFURANTOIN (MACROBID) 100 MG CAP PO ONE (09:10)
[2022-01-13 09:23] VITALS: BP 147/72
== END 2022-01-13 09:24 | disposition home or self-care (01) ==
LOC: M ED 06:14
DX: N30.01 Acute cystitis with hematuria (principal); I25.10 Atherosclerotic heart disease of native coronary artery without angina pectoris; I10 Essential (primary) hypertension; E78.5 Hyperlipidemia, unspecified; Z91.040 Latex allergy status; Z79.899 Other long term (current) drug therapy; Z79.82 Long term (current) use of aspirin

== ENCOUNTER 2022-09-01 04:55 | Emergency (ER) | payer OTHER ==
[~2022-09-01] VITALS: Ht 160 cm; Wt 86.5 kg
[~2022-09-01 04:55] MED LIST changes: +CLOP75TA99 PO; +MACR100C43 PO; +NITR1CAP11 PO; +PHEN-372 PO; -PLAV1TAB2 PO; +PYRI1TAB5 PO
[2022-09-01 05:37] LABS: BASO # 0.1 10^3/uL (0.0-0.2); BASO % 0.6 % (0.0-1.0); EOS # 0.1 10^3/uL (0.0-0.5); EOS % 1.6 % (0.0-3.0); HEMATOCRIT 45.1 % (36.0-47.0); HEMOGLOBIN 14.9 g/dl (12.0-15.5); LYMPH # 1.4 10^3/uL (1.5-5.0); MEAN CORPUSCULAR HEMOGLOBIN 31.4 pg (27.0-33.0); MEAN CORPUSCULAR VOLUME 95.1 fl (80.0-96.0); MONO # 0.4 10^3/uL (0.0-0.8); MONO % 5.4 % (2.0-8.0); NEUTROPHILS # 5.9 10^3/uL (1.5-8.5); NEUTROPHILS % 74.2 % (36.0-66.0); PLATELET COUNT, AUTOMATED 227 10^3/uL (150-450); RED BLOOD COUNT 4.74 10^6/uL (4.00-5.40)
[2022-09-01 06:06] LABS: CK-MB VALUE MASS < 1.0 NG/ML (<3.6); LIPASE 32 U/L (12-53)
[2022-09-01 06:08] LABS: ALKALINE PHOSPHATASE 117 U/L (46-116); ALT/SGPT 30 U/L (7.0-40); AST/SGOT 22 U/L (<34); BILIRUBIN,DIRECT 0.2 MG/DL (<0.4); BILIRUBIN,TOTAL 0.8 MG/DL (0.3-1.2); BLOOD UREA NITROGEN 11 MG/DL (9-23); CALCIUM LEVEL 8.8 MG/DL (8.5-10.1); CARBON DIOXIDE LEVEL 27 MMOL/L (20-31); CHLORIDE LEVEL 103 MMOL/L (98-107); CREATININE FOR GFR 0.65 MG/DL (0.55-1.30); GLOMERULAR FILTRATION RATE > 60.0 (>51); GLUCOSE, FASTING 109 MG/DL (60-100); POTASSIUM SERUM 4.1 MMOL/L (3.5-5.1); SODIUM LEVEL 138 MMOL/L (136-145); TOTAL PROTEIN 6.9 G/DL (5.7-8.2)
[2022-09-01 06:10] LABS: FREE T4 1.08 NG/DL (0.89-1.76); THYROID STIMULATING HORMONE 3.572 uIU/ML (0.55-4.78)
[2022-09-01 06:15] LABS: CPK CREATINE PHOSPHOKINASE 96 U/L (34-145); MB/CK RELATIVE INDEX 1.04 (< OR =4)
[2022-09-01] MEDS ORDERED: amLODIPine 5 MG TAB PO ONE (07:45)
[2022-09-01 08:07] LABS: CK-MB VALUE MASS < 1.0 NG/ML (<3.6)
[2022-09-01 08:17] LABS: CPK CREATINE PHOSPHOKINASE 92 U/L (34-145); MB/CK RELATIVE INDEX 1.08 (< OR =4)
[2022-09-01 08:56] VITALS: BP 151/78
[2022-09-01 10:58] LABS: RSV AMPLIFICATION NEGATIVE (NEGATIVE)
[2022-09-01] MEDS ORDERED: ACETAMINOPHEN 1000MG 100ML IV BAG IV ONE (13:45)
[2022-09-01] MEDS ORDERED: NS 1,000 ML IV SCH (13:45)
[2022-09-01 16:24] VITALS: BP 138/71
[2022-09-01] MEDS ORDERED: TELMISARTAN 20 MG TAB PO SCH (21:00)
== END 2022-09-01 16:33 | disposition short-term general hospital (02) ==
LOC: M ED 04:55
DX: I20.0 Unstable angina (principal); I10 Essential (primary) hypertension; E78.5 Hyperlipidemia, unspecified; Z87.891 Personal history of nicotine dependence; Z91.040 Latex allergy status; Z79.82 Long term (current) use of aspirin; Z79.899 Other long term (current) drug therapy

== ENCOUNTER → 2023-07-19 | Outpatient (REF) | payer OTHER | LOC: M SFHCPLAZ 16:45 | PROVIDERS: ATTEND Student in an Organized Health Care Education/Training Program | DX: Z76.89 Persons encountering health services in other specified circumstances (principal); E55.9 Vitamin D deficiency, unspecified; I10 Essential (primary) hypertension ==

== ENCOUNTER 2023-09-26 10:09 | Day surgery (SDC) | payer OTHER ==
[~2023-09-26] VITALS: Ht 160 cm; Wt 87.2 kg
[~2023-09-26 10:09] MED LIST changes: +CALC600T61 PO; +DILT120C41 PO; +EZET10TA21 PO; +GNP1000C11 PO; +IRBE300T25 PO; +MIDAZOLAM INJ 2MG/2ML VIAL As Ordered ONE; +PHENYLEPHRINE 10% OPHTH SOL 5ML OD PRN; +ROSU5TAB5 PO; +THERTAB52 PO; +[UNRECOGNIZED DRUG - OTHER] SQ; +fentaNYL 100 MCG/2 ML INJECTION As Ordered ONE
[2023-09-26] MEDS: PHENYLEPHRINE 2.5% OPHTH SOL 2ML OD SCH (11:21)
[2023-09-26] MEDS: TROPICAMIDE 1% OPHTH SOLN 15ML OD SCH (11:21)
[2023-09-26] MEDS: OFLOXACIN 0.3 % (OCUFLOX) OPTH SOL 5ML OD ONE (11:21)
[2023-09-26] MEDS: CYCLOPENTOLATE 1% OPHTH SOLN 2ML BTL OD SCH (11:21)
[2023-09-26] MEDS: LIDOCAINE 3.5 % 1ML OPHTH TOPICAL GEL OU ONE (11:21)
[2023-09-26] MEDS: BSS IRRIG/VANCO(10MG)/TOBRA(5MG)/EPINEPH(1:1000-0.5CC)500ML BAG-ORONLY As Ordered ONE (11:36)
[2023-09-26] MEDS: LIDOCAINE 1% SDV 5ML VIAL As Ordered ONE (11:36)
[2023-09-26] MEDS: CEFUROXIME 1MG/0.1ML INTRACAMERAL INJ As Ordered ONE (11:36)
[2023-09-26] MEDS: DUOVISC (0.50ML VISCOAT/0.85ML PROVISC) OPHTH KIT As Ordered ONE (11:37)
[2023-09-26 11:45] VITALS: BP 165/101; TEMP 97.8; O2SAT 99
== END 2023-09-26 12:02 | disposition home or self-care (01) ==
LOC: M SDC 10:09
PROVIDERS: ATTEND Ophthalmology
DX: H25.11 Age-related nuclear cataract, right eye (principal); Z95.5 Presence of coronary angioplasty implant and graft; Z91.040 Latex allergy status; Z79.899 Other long term (current) drug therapy
CPT/HCPCS: 66984; J0697; J2250; J3010; V2632

== ENCOUNTER → 2024-01-23 | Outpatient (REF) | payer OTHER ==
[~2024-01-23] MED LIST changes: +ACET1TAB55 PO; +COQ150CH PO; +EYECAP2 PO; -MIDAZOLAM INJ 2MG/2ML VIAL As Ordered ONE; +NITR100C3 PO; -NITR1CAP11 PO; -PHENYLEPHRINE 10% OPHTH SOL 5ML OD PRN; +REPA140I2 SC; +ROSU5TAB40 PO; -ROSU5TAB5 PO; -fentaNYL 100 MCG/2 ML INJECTION As Ordered ONE
== END ==
LOC: M SFHCPLAZ 15:16
PROVIDERS: ATTEND Student in an Organized Health Care Education/Training Program
DX: Z12.4 Encounter for screening for malignant neoplasm of cervix (principal)

== ENCOUNTER 2024-01-30 09:20 | Day surgery (SDC) | payer OTHER ==
[~2024-01-30] VITALS: Ht 160 cm; Wt 87.6 kg
[2024-01-30] MEDS: NS 1,000 ML IV ONE (10:15)
[2024-01-30] MEDS ORDERED: LIDOCAINE 2% 100MG/5ML SDV (FOR ANES.) As Ordered ONE (11:58)
[2024-01-30] MEDS ORDERED: propofoL 200 MG/20 ML VIAL As Ordered ONE (11:58)
[2024-01-30 12:06] VITALS: TEMP 98.5
[2024-01-30 12:29] VITALS: BP 182/77; O2SAT 98
== END 2024-01-30 12:44 | disposition home or self-care (01) ==
LOC: M OPP 09:20
PROVIDERS: ATTEND Surgery
DX: Z12.11 Encounter for screening for malignant neoplasm of colon (principal); Z86.010 Personal history of colon polyps; D12.6 Benign neoplasm of colon, unspecified; K57.30 Diverticulosis of large intestine without perforation or abscess without bleeding; Z95.5 Presence of coronary angioplasty implant and graft; Z87.891 Personal history of nicotine dependence; Z79.01 Long term (current) use of anticoagulants; Z79.02 Long term (current) use of antithrombotics/antiplatelets; Z79.1 Long term (current) use of non-steroidal anti-inflammatories (NSAID); Z79.82 Long term (current) use of aspirin; Z79.899 Other long term (current) drug therapy

== ENCOUNTER → 2024-02-04 | Outpatient (CLI) | payer OTHER | LOC: M WHC 09:25 | PROVIDERS: ATTEND Student in an Organized Health Care Education/Training Program | DX: Z12.31 Encounter for screening mammogram for malignant neoplasm of breast (principal) ==

== ENCOUNTER → 2025-03-05 | Outpatient (CLI) | payer OTHER ==
[~2025-03-05] MED LIST changes: -ROSU5TAB40 PO; +ROSU5TAB49 PO
== END ==
LOC: M WHC 08:15
PROVIDERS: ATTEND Student in an Organized Health Care Education/Training Program
DX: Z12.31 Encounter for screening mammogram for malignant neoplasm of breast (principal)

== ENCOUNTER → 2025-03-13 | Outpatient (CLI) | payer OTHER | LOC: M SLEEP HO 11:26 | PROVIDERS: ATTEND Student in an Organized Health Care Education/Training Program | DX: R06.83 Snoring (principal) ==

== ENCOUNTER 2025-05-26 09:02 | Emergency (ER) | payer OTHER ==
[~2025-05-26] VITALS: Ht 160 cm; Wt 88.6 kg
[~2025-05-26 09:02] MED LIST changes: -EZET10TA21 PO; +EZET10TA57 PO
[2025-05-26 09:06] VITALS: TEMP 97.6
[2025-05-26 10:13] LABS: BASO # 0.1 10^3/uL (0.0-0.2); BASO % 0.7 % (0.0-1.0); EOS # 0.1 10^3/uL (0.0-0.5); EOS % 0.8 % (0.0-3.0); LYMPH # 2.0 10^3/uL (1.5-5.0); LYMPH % 20.3 % (24.0-44.0); MONO # 0.5 10^3/uL (0.0-0.8); MONO % 5.2 % (2.0-8.0); NEUTROPHILS # 7.0 10^3/uL (1.5-8.5); NEUTROPHILS % 72.6 % (36.0-66.0); PLATELET COUNT, AUTOMATED 228 10^3/uL (150-450)
[2025-05-26 10:25] LABS: INR 0.95
[2025-05-26 11:49] LABS: CREATININE FOR GFR 0.64 MG/DL (0.55-1.30); GLOMERULAR FILTRATION RATE > 90.0 (>45); SODIUM LEVEL 141 MMOL/L (136-145)
[2025-05-26 11:50] LABS: ALT/SGPT 19 U/L (7.0-40); AST/SGOT 19 U/L (<34); CALCIUM LEVEL 8.9 MG/DL (8.3-10.6); CARBON DIOXIDE LEVEL 27.6 MMOL/L (20-31); CHLORIDE LEVEL 105 MMOL/L (98-107); CK-MB VALUE MASS 1.7 NG/ML (<3.6); CPK CREATINE PHOSPHOKINASE 141 U/L (34-145); MB/CK RELATIVE INDEX 1.20 (< OR =4); POTASSIUM SERUM 4.4 MMOL/L (3.5-5.1)
[2025-05-26] MEDS ORDERED: ISOVUE-370 76% 100 ML VIAL As Ordered ONE (12:02)
[2025-05-26 12:06] LABS: CK-MB VALUE MASS 2.1 NG/ML (<3.6); CPK CREATINE PHOSPHOKINASE 138.0 U/L (34-145); MB/CK RELATIVE INDEX 1.52 (< OR =4)
[2025-05-26] MEDS ORDERED: TRAV2.5D OU (13:57)
[2025-05-26] MEDS ORDERED: CALC1TAB63 PO (13:57)
[2025-05-26] MEDS ORDERED: OCUV1CAP4 PO (13:57)
[2025-05-26] MEDS ORDERED: ASPI81TA26 PO (13:57)
[2025-05-26] MEDS ORDERED: NITR0.4S14 SL (13:57)
[2025-05-26] MEDS ORDERED: HOME MED LIST COMPLETE! XX SCH (14:00)
[2025-05-26 15:17] VITALS: O2SAT 97
[2025-05-26 17:18] VITALS: BP 142/74
== END 2025-05-26 17:23 | disposition home or self-care (01) ==
LOC: M ED 09:02
DX: G45.9 Transient cerebral ischemic attack, unspecified (principal); R00.1 Bradycardia, unspecified; I25.2 Old myocardial infarction; I10 Essential (primary) hypertension; E78.5 Hyperlipidemia, unspecified; Z91.018 Allergy to other foods; Z79.1 Long term (current) use of non-steroidal anti-inflammatories (NSAID); Z79.899 Other long term (current) drug therapy
CPT/HCPCS: 36415; 70450; 70496; 70498; 70551; 80047; 80048; 80076; 82550; 82553; 83690; 84484; 85025; 85610; 85730; 93005; 93041; 94760; 99285; Q9967